=== PATIENT | female | born 1950 | race Caucasian/White ===

== ENCOUNTER 2022-07-14 14:13 | Outpatient (CLI) | payer MEDICARE, BC, SELFPAY ==
--- NOTE | 2022-07-14 14:30 | MR_ITS ---
[address] [address] Phone:?[phone] Fax:?[phone] Referring Physician Information: Amado Tenorio M.D. [address] [facility] [address] Phone:?[phone] Fax:?[phone] Patient:Frank Casey D.O.B:?1950 Sex:?Female Phone:?[phone] [facility] MRN:?[id number] Exam Date:?07/14/2022 ? EXAM: MRI of the RIGHT SHOULDER, without contrast CLINICAL HISTORY: Chronic right shoulder pain. Evaluate for rotator cuff pathology. COMPARISONS: MRI 02/15/2019. TECHNICAL: MRI sequences of the right shoulder: Axials: PD, T2 Coronals: PD, STIR, T2 Sagittals: PD, T2 SEDATION: None CONTRAST: None FINDINGS: Bones: No fracture or suspicious bone marrow signal abnormality. Coracoacromial arch: Acromion: No os acromiale. Type II acromion. Acromiohumeral space: The bony distance is unremarkable. Coracohumeral space: The bony distance is unremarkable. Acromioclavicular joint: Mild degenerative changes. Coracoclavicular ligament: The coracoclavicular ligament is intact. Rotator cuff muscles/tendons: Supraspinatus: Mild tendinopathy, similar compared to previous MRI 02/15/2019. No muscular atrophy. Infraspinatus: Moderate tendinopathy, similar compared to previous MRI 02/15/2019. No muscular atrophy. Teres minor: The teres minor tendon and muscle are intact. Subscapularis: Approximately 2.5 cm in craniocaudad dimension by 3.0 cm in transverse dimension ill-defined high-grade partial-thickness tear of the superior and mid portions of the subscapularis tendon evidenced by marked attenuation, similar compared to previous MRI 02/15/2019. Moderate atrophy of the superior and mid portions of the subscapularis muscle, similar compared to previous MRI 02/15/2019. Labrum: Fraying/ill-defined tearing of the entire labrum, not readily apparent on previous MRI 02/15/2019. Proximal biceps tendon, long head and short heads: There is intra-articular medial dislocation of the long head of the biceps tendon from the bicipital groove, also present on previous MRI 02/15/2019. The short head is intact. Glenohumeral joint: Physiologic amount of joint fluid. Extensive near full-thickness and full-thickness chondral loss over most of the glenoid greatest posterosuperiorly with subjacent degenerative subchondral cystic changes, substantially progressed compared to previous MRI 02/15/2019. Extensive near full-thickness and full-thickness chondral loss over most of the humeral head greatest superomedially, substantially progressed compared to previous MRI 02/15/2019. There is mild to moderate inferomedial humeral head osteophytosis. There is mild edema-like signal within and thickening of the glenohumeral joint capsule/inferior glenohumeral ligament best seen on coronal series 4 images 15 through 18. Bursae: Subacromial/subdeltoid: Slight bursitis. Subcoracoid: No convincing subcoracoid bursal thickening/bursitis. IMPRESSION: 1. Intra-articular medial dislocation of the long head of the biceps tendon from the bicipital groove, also present on previous MRI 02/15/2019. 2. Approximately 2.5 x 3.0 cm ill-defined high-grade partial-thickness tear of the superior and mid portions of the subscapularis tendon evidence by marked tendon attenuation, similar compared to previous MRI 02/15/2019. Moderate atrophy of the superior and mid portions of the subscapularis muscle, similar compared to previous MRI 02/15/2019. 3. Substantial glenohumeral joint osteoarthritic changes, substantially progressed compared to previous MRI 02/15/2019, include extensive near full- thickness and full-thickness chondral loss over most of the glenoid greatest posterosuperiorly, associated subjacent subchondral cystic changes posterosuperiorly, extensive near full-thickness and full-thickness chondral loss over most of the humeral head greatest superomedially, fraying/ill-defined tearing of the entire labrum, and mild to moderate inferomedial humeral head osteophytosis. 4. Moderate infraspinatus tendinopathy, similar compared to previous MRI 02/15/2019. No atrophy of the infraspinatus muscle. 5. Mild supraspinatus tendinopathy, similar compared to previous MRI 02/15/2019. No atrophy of the supraspinatus muscle. 6. Evidence of adhesive capsulitis is equivocal in this case, and adhesive capsulitis is more of a clinical diagnosis. Correlate with active and passive range of motion. 7. Slight subacromial/subdeltoid bursitis. RCB Electronically signed on 07/15/2022 6:21:00 AM by Justus Rod M.D.
== END 2022-07-14 14:14 | disposition home or self-care (01) ==
LOC: MRI 14:14
PROVIDERS: PCP Internal Medicine; Visit Provider Orthopaedic Surgery
DX: M25.511 Pain in right shoulder (principal); S43.004A Unspecified dislocation of right shoulder joint, initial encounter; M19.011 Primary osteoarthritis, right shoulder; M75.51 Bursitis of right shoulder
CPT/HCPCS: 73221

== ENCOUNTER 2022-08-05 08:00 | Outpatient (RCR) | payer MEDICARE, BC, SELFPAY ==
--- NOTE | 2022-07-15 13:07 | PT.OPEX ---
PT [facility] Out[facility] Eval PT [facility] Outpatient Eval Start: 07/15/22 12:07 Freq: Status: Active Protocol: Document 07/15/22 12:07 MILIND (Rec: 07/15/22 13:04 NMK [id number]) E-signed By Pedro Stewart DPT Physical Therapy Outpatient Evaluation Insurance Information Insurance Name Blue Cross/Blue Shield Medical Diagnosis Cervicalgia; Low back pain Treating Diagnosis Neck pain Referring Amado Galindo MD Subjective Subjective 71 y.o. female pt presents with primary c/o neck pain that started about five months ago after a fall. She reports she has also had back pain but states this is feeling much better. She reports the pain is present when she is trying to turn her head or look down, and her neck just feels very stiff and achy. She is hoping to get her neck pain under control prior to have a knee replacement surgery on 09/02/2022. She does report that ice is helping with the pain. At times, she does report her arm starts tingling when she driving as well, but otherwise denies frequent tingling or numbness. Current Work Status Retired Precautions Therapy Limitations/Systems Review Not Limited Objective Other/Pertinent Objective ROM Cervical extension: 40 degrees Cervical flexion: 30 degrees Cervical rotation L: 68 degrees R: 55 degrees Cervical side flexion L: 31 degrees R: 38 degrees Strength: 5/5 manual muscle tests in UE. Special tests Spurling's: (-) bilaterally Palpation: TTP present over R suboccipital muscle area and UT. Assessment Assessment/Impression Findings are consistent with a diagnosis of chronic, nonspecific mechanical neck pain. Impairments related to current health condition include neck pain and decreased neck ROM. These impairments contribute to decreased ability to complete tasks such as driving and reading to the inability to turn her neck without pain. Examination of body systems including structures, functions, activity limitations and participation restrictions have been addressed. Skilled PT is recommended in order to improve the patient's mobility and restore their baseline level of function. Within session patient tolerating gentle neck mobility exercises demonstrating good improvements in cervical ROM afterwards. Primary Functional Limitations Turning neck, looking down Plan of Care Rehabilitation Potential Good Physical Therapy Goals Prior to 10/14/2022... 1. Pt will demonstrate cervical spine range of motion within functional limits in order to have ability to look over their shoulder while driving 2. Pt will read for 30 minutes and report no neck pain 3. Pt will be independent in HEP in order to show ability to self manage condition after discharge Coordination/Communication With Referral Source Treatment Plan/Direct Interventions Joint Mobilization,Manual Therapy,Neuromuscular Re-ed, Self-Care/Home Management, Therapeutic Exercises Frequency/Duration 1-2 per week for 8-12 weeks Patient Will Be Discharged From Therapy Completion of LTG(s),Skills Plateau,Independent w/HEP, Independently Progressing Evaluation Billing Untimed Code Treatment Minutes 20 Complexity Moderate Certification Information Physician Comment/Change Comment or Changes Physician NPI Number #
== END 2023-05-11 23:59 | disposition home or self-care (01) ==
PROVIDERS: PCP Internal Medicine; Visit Provider Family Medicine
DX: M54.2 Cervicalgia (principal); Z51.89 Encounter for other specified aftercare
CPT/HCPCS: 97110; 97140; 97162

== ENCOUNTER 2022-08-16 14:34 | Outpatient (CLI) | payer MEDICARE, BC, SELFPAY ==
[2022-08-16 16:18] LABS: Albumin* 4.7 g/dL (3.3-5.0); Chloride* 103 mmol/L (96-114)
[2022-08-16 16:19] LABS: Potassium* 4.3 mmol/L (3.6-5.1); Sodium* 139 mmol/L (135-149)
[2022-08-16 16:21] LABS: Aspartate Amino Transferase* 44 U/L (12-35); Bilirubin Total* 0.8 mg/dL (0.1-1.5); Carbon Dioxide* 29 mmol/L (20-32); Creatinine* 0.6 mg/dL (0.5-1.5); Estimated Glomerular Filt Rate 96 ml/min; Total Protein* 8.1 g/dL (6.0-8.3)
[2022-08-16 16:22] LABS: Alanine Aminotransferase* 38 U/L (4-35); Alkaline Phosphatase* 121 U/L (40-150); Blood Urea Nitrogen* 17 mg/dL (7-30); Calcium* 8.9 mg/dL (8.4-10.6); Glucose* 80 mg/dL (60-115)
== END 2022-08-16 14:35 | disposition home or self-care (01) ==
LOC: NFLDREF 14:35
PROVIDERS: PCP Internal Medicine; Visit Provider Internal Medicine
DX: Z01.818 Encounter for other preprocedural examination (principal)
CPT/HCPCS: 80053

== ENCOUNTER 2022-09-01 08:44 | Day surgery (SDC) | payer MEDICARE, BC, SELFPAY ==
[2022-09-01] VITALS (21 sets, daily range): BP systolic 118–196; BP diastolic 68–102; PULSE 65–93; RESP 16–99; TEMP 35.6–37.3; O2SAT 16–99; BMI 30.1
[2022-09-01] MEDS: LACTATED RINGERS 1000 ML 1,000 ML 100 ML IV ×2 (08:30→12:40)
[2022-09-01] MEDS: ACETAMINOPHEN 500 MG TABLET 1000 MG PO ×3 (09:19→23:16)
[2022-09-01] MEDS: CELECOXIB 200 MG CAPSULE PO ×2 (09:19→21:27)
[2022-09-01] MEDS: OXYCODONE (CR) 10 MG TAB.ER.12H PO (09:20)
[2022-09-01] MEDS: SODIUM CHLORIDE 0.9 % (FLUSH) 10 ML SYRINGE IVF (09:20)
--- NOTE | 2022-09-01 10:32 | SUR.PREOP ---
TIME?OUT:?1040 PT/RN/MDA?VERIFICATION?OF?SURGICAL?SITE Left Knee,?PROCEDURE Periferal Nerve Block,?AND?CONSENT OBTAINED?PRIOR?TO?INVASIVE?PROCEDURE.
[2022-09-01] MEDS: MIDAZOLAM HCL 1 MG/ML inj IVP (10:40)
[2022-09-01] MEDS: fentaNYL 100 MCG/2 ML inj IVP (10:40)
[2022-09-01] MEDS: SCOPOLAMINE 1 MG/3 DAY PATCH 1 PATCH TRANSDERMA (10:40)
[2022-09-01] MEDS: CEFAZOLIN 2 GM INJ IVP (10:56)
[2022-09-01] MEDS: TRANEXAMIC ACID 100 MG/ML INJ 1000 MG IV (11:00)
--- NOTE | 2022-09-01 11:16 | P.NB_ITS ---
Nerve Block Nerve Block Time Seen by Provider: 10:30 Date Seen: 09/01/22 Type of block requested by surgeon for post-operative analgesia: geniculars and adductor canal Side: left Time out performed: Yes Verification of patient name: Yes Verification of date of : Yes Site marking: site marked Name of person performing procedure: radha Continuous monitoring Was continuous monitoring of O2 sat, B/P, front desk monitor, recorded every 15 minutes?: Yes Procedure Checklist: sterile prep, needles and gloves Ultrasound guided. Images saved: Yes Medications given in 5ml increments after negative aspiration: Ropivicaine %: 0.5 mL: 30 Needle gauge: 20 Decadron (mg): 10 Precedex (mcg): 25 Patient tolerated procedure well: Yes Block Charges Block Charge (with Pro Fee): Femoral Nerve Use of Ultrasound Machine for Block: Yes- US Guidance/pain block
--- NOTE | 2022-09-01 11:23 | P.NB_ITS ---
Nerve Block Nerve Block Time Seen by Provider: 10:30 Date Seen: 09/01/22 Type of block requested by surgeon for post-operative analgesia: geniculars Side: left Time out performed: Yes Verification of patient name: Yes Verification of date of : Yes Site marking: site marked Name of person performing procedure: radha Continuous monitoring Was continuous monitoring of O2 sat, B/P, ekg monitor tech, recorded every 15 minutes?: Yes Procedure Checklist: sterile prep and needles Patient tolerated procedure well: Yes Block Charges Block Charge (with Pro Fee): Genicular Nerve Block
--- NOTE | 2022-09-01 12:09 | CRLHL7_ITS ---
For Patients: As a result of the Cures Act, medical imaging exams and procedure reports are released immediately into your electronic medical record. You may view this report before your referring provider. If you have questions, please contact your health care provider. INDICATION: Postoperative left total knee arthroplasty, postoperative total knee arthroplasty TECHNIQUE: Knee radiograph 2 views left COMPARISON: None FINDINGS: Bone: No acute fractures or aggressive bone lesions are identified. Joint: The patient is status post a total knee arthroplasty with patellar resurfacing. No significant knee effusion is seen. Soft tissue: Anterior subcutaneous gas and joint gas are present from recent surgery. No radiopaque foreign bodies are seen. IMPRESSION: 1. There is an unremarkable postoperative appearance of the knee arthroplasty. Dictated by: Nirmal Yo MD @ 09/01/2022 14:04:42 (Electronically Signed)
--- NOTE | 2022-09-01 12:11 | P.ORPRC_ITS ---
Procedure Note Date of procedure: 09/01/22 Procedure: SURGEON: Amado Tenorio MD HOG ROOM SUPERVISOR: Birdie Mohr PA-C PREOPERATIVE DIAGNOSIS: Left knee osteoarthritis POSTOPERATIVE DIAGNOSIS: Left knee osteoarthritis NAME OF OPERATION: Left total knee arthroplasty ANESTHESIA: Spinal ESTIMATED BLOOD LOSS: 0 mL COMPLICATIONS: None SPECIMENS: None DRAINS: None PREOPERATIVE ANTIBIOTICS: Ancef 2 grams IMPLANTS: 1. J&J Attune # 7 posterior stabilized femur 2. # 5 fixed-bearing tibia 3. # 7 posterior stabilized, 5 mm fixed-bearing polyethylene 4. 38 patella INDICATIONS: The patient is a 71-year-old with a longstanding history of severe, unrelenting left knee pain secondary to end-stage (grade IV) left knee osteoarthritis. Despite appropriate nonoperative management, including activity modification, anti-inflammatories, [id number]-[id number] pain medication, bracing, physical therapy, and injections they continue to have pain and disability. Operative intervention was offered. The risks, benefits and expected outcomes were discussed in detail. These included but were not limited to: Infection, bleeding, injury to blood vessel or nerve, venous thromboembolism. All questions were answered to their satisfaction. Use of an medical assistant instructor was necessary throughout the case for patient positioning and safety, soft tissue retraction, and closure. PROCEDURE: Spinal anesthesia was administered. The patient was placed supine on the operating table. The medical assistant instructor made sure the patient was positioned appropriately. The lower extremity was prepped and draped in the usual sterile fashion. The limb was exsanguinated with the Phillip bandage. The pneumatic tourniquet was inflated to 300 mmHg. A standard anterior incision was made with the knee in flexion. Subcutaneous dissection was sharply taken through fascial layer #1. Full-thickness medial and lateral flaps were elevated. The medical assistant instructor retracted the soft tissues and protected them throughout the case. A standard medial parapatellar approach was made. The patella was everted. The infrapatellar fat pad was preserved. The menisci and cruciate ligaments were sharply d?brided. Marginal osteophytes were d?brided with the rongeur. The drill was used to penetrate the femoral canal. The canal was aspirated and irrigated with pulse lavage. The intramedullary femoral guide was placed for a 5-degree valgus cut, removing 10 mm off the distal femur. The saw was used to make the cut. Whitesides line and the trans epicondylar axis were marked. The femoral sizing guide was pinned onto the distal femur. Three degrees of external rotation nicely parallels the transepicondylar axis. Pins were placed for posterior referencing. The four-in-one cutting guide was pinned onto the distal femur. The anterior, posterior, and chamfer cuts were made. The medical assistant instructor protected the collateral ligaments. The box cutting guide was pinned. The box cuts were made. The boxed trial was placed and was an excellent fit. Drill holes for the lugs were made. Attention was then turned to the proximal tibia. The extramedullary tibial guide was placed for a neutral varus/valgus cut with 5 degrees of posterior slope, removing 2 mm based off the medial tibial surface. The medical assistant instructor protected the collateral ligaments and the neurovascular bundle. The saw was used to make the cut. Trial components were placed. The knee was tight in both flexion and extension. Therefore, we replaced tibial cutting guide, advancing it 2 more mm distally. The saw was used to make the cut. Trial components were replaced and now the knee was nicely balanced in both flexion and extension. The trial components were removed. The tray was placed in appropriate rotation, parallel to our tibial cutting pins. It was pinned by the medical assistant instructor and the drill and the punch were used. The tray was removed. The punch was used again. We placed a bone plug in the femoral canal. Attention was then turned to the patella. Ute patellar thickness was 19.5 mm. The lobster claw resection guide was used with the 7.5 mm ramona and comma guide used as an extra ramona. The saw was used to make the cut. Drill holes were made by the medical assistant instructor. The trial was placed and was an excellent fit. Cancellous surfaces were irrigated with pulse lavage and thoroughly dried by the medical assistant instructor. We cemented the tibial component, then the femoral component. We impacted the 5 mm polyethylene onto the tibial tray. The knee was brought into full extension. We then cemented the patellar component. Excessive cement was removed. The cement was allowed to harden. The knee was taken through a range of motion and was found to be nicely balanced in both flexion and extension. The patella tracks centrally. The medical assistant instructor did a three minute dilute Betadine solution soak. The medical assistant instructor irrigated the wound with 3 liters of normal saline via pulse lavage. The medical assistant instructor reapproximated the extensor mechanism with #1 Vicryl in an interrupted [id number] fashion. The medical assistant instructor then ran the extensor mechanism with a #1 PDO Stratafix. The medical assistant instructor closed the subcutaneous tissues with a 3-0 Stratafix and the skin with a running 3-0 Stratafix in a subcuticular fashion. Glue was used to seal the skin. The medical assistant instructor placed a dry dressing, DELVIS stocking, and Polar Care. Sponge and needle counts were correct x2. The patient tolerated the procedure well. There were no apparent complications. They were carefully transferred to the hospital bed and taken to the postanesthesia care unit in satisfactory condition. PLAN: The patient will be mobilized with physical therapy. Aspirin will be used for DVT prophylaxis. They will be discharged to home once medically appropriate.
--- NOTE | 2022-09-01 13:05 | W.ANESCHARGE ---
Anesthesia Charges Start Date/Time Anesthesia Start Date: 09/01/22 Anesthesia Start Time: 10:46 Stop Date/Time Anesthesia Stop Date: 09/01/22 Anesthesia Stop Time: 13:05 Summary Emergency: No Extremes of Age: Over 70-CPT [id number]
--- NOTE | 2022-09-01 14:27 | PC.SOCIAL ---
Discharge planning- Phone call to [facility] to confirm that they will be admitting pt to [facility] tomorrow (09/02/22). Spoke to Brianna in admissions. Brianna confirmed that they will take pt tomorrow. Faxed over initial referral paperwork to [facility]. Met with pt in room to discuss discharge planning. Pt states that she does have a ride set for tomorrow between 10:00 and 11:00 am from a friend, Luly Pierre. Provided update to charge nurse.
[2022-09-01] MEDS: OXYCODONE 5 MG TABLET PO ×4 (14:51→23:13)
[2022-09-01] MEDS: CEFAZOLIN 2 GM in 0.9 % SODIUM CHLORIDE Mini-bag 100 ML IVPB (16:37)
[2022-09-01] MEDS: GABAPENTIN 100 MG CAPSULE 200 MG PO ×2 (16:40→21:27)
--- NOTE | 2022-09-01 17:06 | P.IMCN_ITS ---
Date of Consult Patient: [facility] Patient Consult date: 09/01/22 Requesting Physician: Orthopedics Primary Care Provider: Rox Maki MD Consult Narrative Reason for consult: Postoperative cares including elevated blood pressure and daily alcohol use Narrative: Pauline Casey is a 71 year old woman with severe, symptomatic left knee arthritis presents today for an elective left total knee arthroplasty, which is undertaken successfully without any complications. Blood pressure is modestly elevated postoperatively with systolic values of 180- 200 mmHg. In clinic setting preoperative blood pressures were also elevated, with systolic values of 150-180. She denies chest heaviness, pressure, tightness, or pain. Denies syncope or near-syncope. Denies nausea or vomiting. Denies cough, dyspnea at rest, paroxysmal nocturnal dyspnea, orthopnea, or dyspnea with exertion. No lower extremity edema. Review of Systems Status of ROS: Reports: 10 or more systems reviewed and unremarkable except as noted in History and below Narrative: No recent fever, rigors, diaphoresis. No recent illness, trauma, travel. No blood loss of any sort aside from the surgical procedure that she had today. No bowel or bladder concerns. Denies dysuria, urgency, frequency, or hematuria. Denies any focal motor neurologic deficits. Denies myalgias or arthralgias. Denies weight gain or weight loss. Again denies any alcohol withdrawal symptoms. [facility] Medical History Arthritis of right acromioclavicular joint Daily consumption of alcohol Elevated blood pressure reading without diagnosis of hypertension Irritable bowel syndrome (09/24/09) Lymphocytic colitis Obesity with body mass index greater than 30 Osteoarthritis of carpometacarpal joint of right thumb Osteopenia (2021) Overactive bladder Primary osteoarthritis of left knee Strain of right biceps Surgical History History of bilateral cataract extraction History of blepharoplasty (2021) History of bunionectomy (09/24/09) History of cholecystectomy (~1968) History of foot surgery (07/07/12) History of total hip replacement (2004) History of total knee replacement (03/15/16) Status post right foot surgery (07/04/14) Family History Sister Diabetes Osteoarthritis Mother Lung cancer Father Leukemia Social History Smoking Status: Former smoker What tobacco products do you use: cigarettes Smoking quit date/years: >15 years ago Do you use any of these nicotine containing products: None Second hand tobacco smoke exposure: No How often do you have a drink containing alcohol: 4 or more times a week Alcohol type: wine How many standard drinks containing alcohol do you have on a typical day: 1 or 2 How often do you have six or more drinks on one occasion: Never AUDIT-C Alcohol total score: 4 Non-prescribed substance use: denies use Caffeine: Yes (coffee, 2-3 cups/day) Meds Home Medications and Allergies Home Medications Medication Instructions Recorded Confirmed Type cholecalciferol (vitamin D3) 50 2,000 unit PO DAILY 07/06/22 09/01/22 History mcg (2,000 unit) capsule cranberry 500 mg capsule 500 mg PO DAILY 07/06/22 09/01/22 History cyanocobalamin (vitamin B-12) 3,000 mcg PO DAILY 07/06/22 09/01/22 History 3,000 mcg capsule multivitamin 1 tab PO DAILY 07/06/22 09/01/22 History omega 8-[id number]-fish oil 100 1 cap PO DAILY 07/06/22 08/31/22 History mg-160 mg-1,000 mg capsule (Fish Oil) Allergies Allergy/AdvReac Type Severity Reaction Status Date / Time morphine Allergy Mild itching Verified 09/01/22 09:05 nickel Allergy Mild rash when Verified 09/01/22 09:05 she wears cheap jewlery codeine AdvReac Mild GI upset Verified 09/01/22 09:05 hydrocodone AdvReac Mild GI upset Verified 09/01/22 09:05 Exam Narrative: Exam Narrative: No acute distress, appears comfortable. Still not able to move the affected left lower extremity from the anesthetic block. Alert, oriented to self, place, time, situation. Articulate, cooperative, friendly. Mood and affect are congruent. Vision and hearing are grossly normal. Midline nasal septum. Normal nasal mucosa. Dentition in fair repair. Cranial nerves 3-12 are grossly normal. Neck is supple. Midline trachea, normal thyroid. No JVD or hepatojugular reflux. No lymphadenopathy. Lungs are clear to auscultation without wheezing, rhonchi, or rales. Chest wall excursions are full. No CVA tenderness. Heart tones with regular rhythm, normal S1-S2, without murmur, gallop, or rub. PMI is not laterally displaced. Abdomen with active bowel sounds, soft, nontender, without rebound or guarding. Extremities without edema. Capillary refill less than 3 seconds on digits of upper and lower extremities. Still not able to lift the affected left leg off the bed when I examine her. Otherwise no focal motor neurologic deficits. Const: Vital Signs, click to edit/add: Vital Signs - 24 hr 09/01/22 09:08 09/01/22 10:40 09/01/22 13:00 Temperature 97.7 F 96.6 F L Pulse Rate 81 77 69 Pulse Rate [Left P ulse Oximeter] Respiratory Rate 16 16 16 Blood Pressure 169/79 H 178/77 H 118/68 Blood Pressure [Le ft Arm] Blood Pressure [Ri ght Arm] Pulse Oximetry 96 96 95 Oxygen Delivery Me thod Room Air Nasal Cannula Room Air Oxygen Flow Rate 2 09/01/22 13:05 09/01/22 13:15 09/01/22 13:10 Temperature 96.6 F L 96.6 F L Pulse Rate 69 67 65 Pulse Rate [Left P ulse Oximeter] Respiratory Rate 16 16 16 Blood Pressure 127/70 136/72 127/76 Blood Pressure [Le ft Arm] Blood Pressure [Ri ght Arm] Pulse Oximetry 95 95 93 Oxygen Delivery Me thod Room Air Room Air Room Air Oxygen Flow Rate 2 2 09/01/22 13:22 09/01/22 13:26 09/01/22 13:31 Temperature 96.8 F L 96.8 F L 97.2 F L Pulse Rate 67 65 68 Pulse Rate [Left P ulse Oximeter] Respiratory Rate 16 16 16 Blood Pressure 133/75 146/79 H 147/79 H Blood Pressure [Le ft Arm] Blood Pressure [Ri ght Arm] Pulse Oximetry 97 96 95 Oxygen Delivery Me thod Room Air Room Air Room Air Oxygen Flow Rate 2 09/01/22 13:41 09/01/22 13:45 09/01/22 14:00 Temperature 96.3 F L 96.7 F L 96.1 F L Pulse Rate 65 Pulse Rate [Left P ulse Oximeter] 68 78 Respiratory Rate 16 16 99 H Blood Pressure Blood Pressure [Le ft Arm] 154/86 H 167/85 H Blood Pressure [Ri ght Arm] 180/81 H Pulse Oximetry 86 L 16 L Oxygen Delivery Me thod Room Air Room Air Room Air Oxygen Flow Rate 09/01/22 14:15 09/01/22 14:30 09/01/22 15:00 Temperature 96.8 F L 97.1 F L 97 F L Pulse Rate Pulse Rate [Left P ulse Oximeter] 65 71 76 Respiratory Rate 16 16 16 Blood Pressure Blood Pressure [Le ft Arm] 190/93 H 196/93 H 192/97 H Blood Pressure [Ri ght Arm] Pulse Oximetry 98 98 99 Oxygen Delivery Me thod Room Air Room Air Room Air Oxygen Flow Rate 2 2 09/01/22 15:30 09/01/22 15:00 09/01/22 16:30 Temperature 97.4 F L 97.4 F L Pulse Rate Pulse Rate [Left P ulse Oximeter] 77 68 Respiratory Rate 16 16 16 Blood Pressure Blood Pressure [Le ft Arm] 185/102 H 176/84 H Blood Pressure [Ri ght Arm] Pulse Oximetry 99 99 Oxygen Delivery Me thod Room Air Room Air Oxygen Flow Rate Documenting provider has reviewed patient's vital signs: yes Assessment and Plan Assessment and plan (1) Primary osteoarthritis of left knee: Status: Acute (2) Status post left knee replacement: Problem comment: 09/01/2022, [facility], Dr. Tenorio Status: Acute (3) Daily consumption of alcohol: Problem comment: 2-4 drinks of wine daily, denies withdrawal symptoms Status: Acute (4) Elevated blood pressure reading without diagnosis of hypertension: Status: Acute (5) Obesity with body mass index greater than 30: Status: Acute Plan 1. Reviewed impression with patient. Answered her questions. 2. Will follow patient with Orthopedic surgery while she is in the hospital. 3. I am concerned about heard daily alcohol use. While in hospital will initiate gabapentin prophylactically at 200 mg 3 times daily. Will monitor closely for possible alcohol withdrawal and initiate CIWA driven lorazepam if needed. 4. Did initiate discussion with patient about increased risk of complications due to her daily consumption of alcohol. 5. For now will monitor the blood pressure. Again it has been elevated in the outpatient setting as well. Will certainly warrant follow-up with her primary care physician in regard to the same. 6. Agree with perioperative antibiotic prophylaxis. 7. Agree with postoperative venous thromboembolism prophylaxis.
--- NOTE | 2022-09-01 18:14 | PC.NURSE ---
End of Shift: Patient pleasant and cooperative. Patient was initially hypertensive first couple hours after surgery with BP/s in low 200's, high 190's, MD notified. BP's are not WNL, lungs clear, BS WNL, IV SL. Patient has been up to the toilet x2, not completely making it to the toilet. Patient has rated pain at most 5/10, 5 mg of oxy given once, then 10mg of oxy given once, plus scheduled tylenol. Patient 1 assist, walker, gb. Patient tolerating regular diet. Left knee dressing C/D/I.
[2022-09-01] MEDS: ASPIRIN 81 MG TABLET EC PO (21:27)
[2022-09-01] MEDS: SENNOSIDES 1 TAB TABLET 2 TAB PO (21:28)
[2022-09-02] MEDS: CEFAZOLIN 2 GM in 0.9 % SODIUM CHLORIDE Mini-bag 100 ML IVPB ×2 (01:12→08:23)
[2022-09-02 03:00] VITALS: BP 165/76; PULSE 79; RESP 18; TEMP 36.3; O2SAT 97
[2022-09-02] MEDS: ACETAMINOPHEN 500 MG TABLET 1000 MG PO ×2 (05:43→12:16)
[2022-09-02] MEDS: OXYCODONE 5 MG TABLET PO ×3 (05:43→12:16)
--- NOTE | 2022-09-02 06:19 | PC.NURSE ---
Shift note -: Pt alert, uses call light for needs, up to BR w/ SBA and walker, moving well. Rating pain 4-5/10 taking scheduled Tylenol w/ PRN Oxycodone x2 and cryocuff to op site, verbalizes adequate pain relief. Drsg to L knee CDI, CMS intact. Plans to Dc to [facility] today.
[2022-09-02 07:00] VITALS: BP 124/78; PULSE 79; PULSE 85; RESP 18; TEMP 36.8; O2SAT 97
[2022-09-02 07:08] LABS: Basophils Percent Auto 0.1 % (0.0-3.0); Hematocrit 37.5 % (33.0-51.0); Hemoglobin* 12.1 gm/dL (12.0-16.0); Immature Granulocytes Pct Auto 0.4 %; Lymphocytes Percent Auto 5.9 % (20-44); Mean Corpuscular HGB Conc 32 gm/dL (32-36); Mean Corpuscular Hemoglobin 31 pg (26-34); Mean Corpuscular Volume 97 fL (80-100); Monocytes Percent Auto 9.5 % (0.0-11.0); Neutrophils Percent Auto 84.1 % (42.0-72.0); Platelet Count* 264 K/uL (140-440); RDW Coefficient of Variation % 12.7 % (11.5-15.5); Red Blood Count 3.87 m/uL (4.00-5.20); White Blood Count* 11.09 K/uL (4.50-11.00)
[2022-09-02 07:10] LABS: Slide Review Reflex No
[2022-09-02 07:25] LABS: Sodium* 136 mmol/L (135-149)
[2022-09-02 07:26] LABS: INR 0.99 (0.91-1.10); Prothrombin Time 13.7 Seconds
[2022-09-02 07:28] LABS: Blood Urea Nitrogen* 19 mg/dL (7-30); Creatinine* 0.7 mg/dL (0.5-1.5); Est. Creatinine Clearance* 53.93; Estimated Glomerular Filt Rate 92 ml/min
[2022-09-02] MEDS: SENNOSIDES 1 TAB TABLET 2 TAB PO (08:23)
[2022-09-02] MEDS: GABAPENTIN 100 MG CAPSULE 200 MG PO (08:24)
[2022-09-02] MEDS: CELECOXIB 200 MG CAPSULE PO (08:24)
[2022-09-02] MEDS: MULTIVITAMIN/MINERALS 1 TABLET 1 TAB PO (08:25)
[2022-09-02] MEDS: ASPIRIN 81 MG TABLET EC PO (08:25)
--- NOTE | 2022-09-02 08:28 | PM.ORPN ---
Subjective Subjective Time Seen by Provider: 07:50 Date Seen: 09/02/22 Principal diagnosis: S/P day 1 left KTA Interval history: Pauline is doing well this morning and is resting comfortably in her recliner. Ranks her left knee pain as 3 or 4/10. Denies chest pain, SOB, fever, chills. Pain is well managed with current scheduled and PRN oral pain medications and ice. No BM since surgery, also denies flatulence. Patient will be discharged to [facility] later today. No acute events over night. Ortho Exam Narrative Exam Narrative: Incision/Dressing: Dressing appears clean and dry. No drainage present. Mepilex intact. Left knee appears moderately swollen but supple with no obvious erythema, fluctuance or excessive warmth. No ecchymosis or erythematous streaking. Warmth around the wound is appropriate. Ice is being utilized as needed. CMS: Intact distally with 2+ Dorsalis pedis and Posterior Tibial pulses. 5/5 motor strength dorsal and plantar flexion. Confirmed sensation distally. Calf: Bilateral calves are supple, with no swelling, pain, tenderness, erythema, discoloration or coolness to the touch. Constitutional: Patient is alert and oriented x3. Patient is in no acute distress and converses without labored breathing. Patient is able to make decisions and demonstrates good insight. Patient is pleasant and cooperative. Affect is full range and appropriate for the circumstances. Const Vital Signs, click to edit/add: Vital Signs - 24 hr 09/01/22 09:08 09/01/22 10:40 09/01/22 13:00 Temperature 97.7 F 96.6 F L Pulse Rate 81 77 69 Pulse Rate [Left Pulse Oximeter] Respiratory Rate 16 16 16 Blood Pressure 169/79 H 178/77 H 118/68 Blood Pressure [Left Arm] Blood Pressure [Right Arm] Pulse Oximetry 96 96 95 Oxygen Delivery Method Room Air Nasal Cannula Room Air Oxygen Flow Rate 2 09/01/22 13:05 09/01/22 13:15 09/01/22 13:10 Temperature 96.6 F L 96.6 F L Pulse Rate 69 67 65 Pulse Rate [Left Pulse Oximeter] Respiratory Rate 16 16 16 Blood Pressure 127/70 136/72 127/76 Blood Pressure [Left Arm] Blood Pressure [Right Arm] Pulse Oximetry 95 95 93 Oxygen Delivery Method Room Air Room Air Room Air Oxygen Flow Rate 2 2 09/01/22 13:22 09/01/22 13:26 09/01/22 13:31 Temperature 96.8 F L 96.8 F L 97.2 F L Pulse Rate 67 65 68 Pulse Rate [Left Pulse Oximeter] Respiratory Rate 16 16 16 Blood Pressure 133/75 146/79 H 147/79 H Blood Pressure [Left Arm] Blood Pressure [Right Arm] Pulse Oximetry 97 96 95 Oxygen Delivery Method Room Air Room Air Room Air Oxygen Flow Rate 2 09/01/22 13:41 09/01/22 13:45 09/01/22 14:00 Temperature 96.3 F L 96.7 F L 96.1 F L Pulse Rate 65 Pulse Rate [Left Pulse Oximeter] 68 78 Respiratory Rate 16 16 99 H Blood Pressure Blood Pressure [Left Arm] 154/86 H 167/85 H Blood Pressure [Right Arm] 180/81 H Pulse Oximetry 86 L 16 L Oxygen Delivery Method Room Air Room Air Room Air Oxygen Flow Rate 09/01/22 14:15 09/01/22 14:30 09/01/22 15:00 Temperature 96.8 F L 97.1 F L 97 F L Pulse Rate Pulse Rate [Left Pulse Oximeter] 65 71 76 Respiratory Rate 16 16 16 Blood Pressure Blood Pressure [Left Arm] 190/93 H 196/93 H 192/97 H Blood Pressure [Right Arm] Pulse Oximetry 98 98 99 Oxygen Delivery Method Room Air Room Air Room Air Oxygen Flow Rate 2 2 09/01/22 15:30 09/01/22 15:00 09/01/22 16:30 Temperature 97.4 F L 97.4 F L Pulse Rate Pulse Rate [Left Pulse Oximeter] 77 68 Respiratory Rate 16 16 16 Blood Pressure Blood Pressure [Left Arm] 185/102 H 176/84 H Blood Pressure [Right Arm] Pulse Oximetry 99 99 Oxygen Delivery Method Room Air Room Air Oxygen Flow Rate 09/01/22 17:30 09/01/22 18:37 09/01/22 19:30 Temperature 98.2 F 99.1 F 97.1 F L Pulse Rate Pulse Rate [Left Pulse Oximeter] 88 73 93 Respiratory Rate 16 16 18 Blood Pressure Blood Pressure [Left Arm] 134/92 H 162/96 H 149/95 H Blood Pressure [Right Arm] Pulse Oximetry 95 93 97 Oxygen Delivery Method Room Air Room Air Room Air Oxygen Flow Rate 09/01/22 23:00 09/01/22 23:00 09/02/22 03:00 Temperature 97.9 F 97.4 F L Pulse Rate Pulse Rate [Left Pulse Oximeter] 80 79 Respiratory Rate 18 18 18 Blood Pressure Blood Pressure [Left Arm] Blood Pressure [Right Arm] 165/84 H 165/76 H Pulse Oximetry 97 97 Oxygen Delivery Method Room Air Room Air Oxygen Flow Rate Documenting provider has reviewed patient's vital signs: yes Assessment and Plan Assessment and plan (1) Primary osteoarthritis of left knee: Status: Acute (2) Status post left knee replacement: Problem details: DOS: 09/01/2022, Dr. Tenorio Status: Acute Assessment and Plan: - Complete 23 hour perioperative antibiotics. - PT/OT consults for education and assistance. - Weight bear as tolerated. - DVT prophylaxis includes: aspirin 81 mg BID x 1 month. Also bilateral knee high Markos stockings (x 1 month), frequent ambulation and ankle pumps when sedentary. - Anticipate patient will be discharged to [facility] later this afternoon if the patient remains medically stable, pain is controlled and is safe with ambulation. - Return to clinic in 1 week for a wound check. Mepilex dressing will be removed at this appointment. Remove sooner if dressing becomes saturated. - Return to clinic in [address] Tenorio. - Prescribed analgesics as needed. Patient is content with current narcotic medications. Minimize narcotic pain medication use; wean off and discontinue as soon as possible. - Phone Orthopedics with any questions or concerns. (3) Daily consumption of alcohol: Status: Acute (4) Elevated blood pressure reading without diagnosis of hypertension: Status: Acute (5) Obesity with body mass index greater than 30: Status: Acute
[2022-09-02 09:47] VITALS: BP 147/79; PULSE 65; RESP 18; TEMP 36.3
--- NOTE | 2022-09-02 10:41 | PC.SOCIAL ---
Completed preadmission screening for pt to admit to [facility] on 09/02/2022. Confirmation# [id number]. Faxed preadmission screening to [facility].
== END 2022-09-02 13:46 | disposition home or self-care (01) ==
LOC: OR 08:47 → MEDSURG 08:51
PROVIDERS: PCP Internal Medicine; Visit Provider Orthopaedic Surgery
PROC: (CPT 27447; principal; 2022-09-01 11:15)
DX: M17.12 Unilateral primary osteoarthritis, left knee (principal); M25.562 Pain in left knee; R03.0 Elevated blood-pressure reading, without diagnosis of hypertension; E66.9 Obesity, unspecified; Z68.30 Body mass index [BMI] 30.0-30.9, adult; F10.90 Alcohol use, unspecified, uncomplicated
CPT/HCPCS: 27447; 01402; 36415; 64447; 64454; 73560; 76942; 82565; 84132; 84295; 84520; 85025; 85610; 97110; 97116; 97161; 97165; 97535; 99100; A9153; A9270; C1776; J0690; J1100; J2250; J2795; J3010; J7120

== ENCOUNTER 2022-09-08 13:41 | Outpatient (CLI) | payer MEDICARE, BC, OTHER, SELFPAY ==
--- NOTE | 2022-09-08 14:00 | CRLHL7_ITS ---
For Patients: As a result of the Century Cures Act, medical imaging exams and procedure reports are released immediately into your electronic medical record. You may view this report before your referring provider. If you have questions, please contact your health care provider. INDICATION: Left calf pain, status post TKR about 1 week ago.. TECHNIQUE: Ultrasound venous duplex lower left extremity. Compression venous exam was performed using hargrove-scale, color Doppler, and spectral Doppler analysis. COMPARISON: None. FINDINGS: Deep veins: Sonographic imaging demonstrates the left common femoral, deep femoral, superficial femoral, popliteal, posterior tibial and the contralateral right common femoral veins to be fully compressible with normal color Doppler blood flow. Superficial veins: Greater saphenous vein is fully compressible. No popliteal cyst. Small fluid collection posterior to the knee measuring approximately 3.9 x 0.8 x 1.4 centimeters, likely postsurgical. IMPRESSION: No DVT in the left lower extremity. Dictated by Madison Bond MD @ 09/08/2022 8:23:12 PM (Electronically Signed)
== END 2022-09-08 13:42 | disposition home or self-care (01) ==
LOC: US 13:42
PROVIDERS: PCP Internal Medicine; Visit Provider Physician Assistant Surgical
DX: M79.605 Pain in left leg (principal); Z96.652 Presence of left artificial knee joint
CPT/HCPCS: 93971

== ENCOUNTER 2022-10-21 16:15 | Outpatient (RCR) | payer MEDICARE, BC, SELFPAY ==
--- NOTE | 2022-08-22 13:40 | PT.OPEX ---
PT [place] Outpatient Eval PT [facility] Outpatient Eval Start: 08/22/22 09:07 Freq: Status: Active Protocol: Document 08/22/22 10:11 MANUEL (Rec: 08/22/22 13:35 MANUEL [id number]) E-signed By Freddie Bowen PT Physical Therapy Outpatient Evaluation Insurance Information Insurance Name Medicare B,Blue Cross/Blue Shield Medical Diagnosis Left knee OA Treating Diagnosis Left quad weakness Decreased left knee ROM Referring MD Tenorio Subjective Subjective Pt. states that she has had chronic left knee pain due to progressive OA. She was responding to injections before but nothing has helped recently. She will be having a TKA on 09/01/22. She had a right TKA 7 years ago which she has done well with. She lives alone in an apartment on one level with the only steps getting down to the laundry room which has a railing. She is planning on having a short stay in a SNF for rehab following surgery if she is able to get into one. PMH includes OA, and right TKA. She has been walking without an assistive device except for longer distances when she uses a cane. 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 demonstrates; mild/mod limp on left without assistive device; 4/5 left quad strength; mild swelling of left knee; 5-25 degrees of left knee AROM; and good right knee and bilat. UE mobility and strength. She will benefit from performing pre-op exercises prior to surgery, improving effectiveness of rehab following surgery. She will benefit from skilled therapy following her TKA on 09/01/22. Primary Functional Limitations walking, squatting, steps Plan of Care Rehabilitation Potential Excellent Physical Therapy Goals 1. Pt. will be indep. with HEP for self maintenance in 10 weeks. 2. Pt. will be able to walk with a min limp without assistive device in 10 weeks. 3. Pt. will demonstrate improved quad and core strength in 10 weeks to WNL. 4. Pt. will demonstrate functional knee AROM to allow regular ADL's in 10 weeks. Coordination/Communication With Referral Source Treatment Plan/Direct Interventions Gait Training,Joint Mobilization,Manual Therapy, Neuromuscular Re-ed,Self-Care/ Home Management,Therapeutic Activities,Therapeutic Exercises Frequency/Duration Re-eval in therapy after surgery and continue 2 times a week for 8 weeks. Patient Will Be Discharged From Therapy Independent w/HEP, Independently Progressing Evaluation Billing Complexity Low Certification Information Initial Certification Date 08/22/22 Ending Certification Date 11/14/22 Provider Signature Shows Agreement With POC & Medical Necessity Physician Signature & Date Requested Please Sign/Date Here Physician Comment/Change : Physician NPI Number #
== END 2022-11-25 14:31 | disposition home or self-care (01) ==
PROVIDERS: PCP Internal Medicine; Visit Provider Orthopaedic Surgery
DX: M17.12 Unilateral primary osteoarthritis, left knee (principal); Z51.89 Encounter for other specified aftercare
CPT/HCPCS: 97110; 97140; 97161; 97164

== ENCOUNTER 2023-01-27 14:18 | Outpatient (CLI) | payer MEDICARE, BC, SELFPAY ==
--- NOTE | 2023-01-27 14:40 | CRLHL7_ITS ---
For Patients: As a result of the Cures Act, medical imaging exams and procedure reports are released immediately into your electronic medical record. You may view this report before your referring provider. If you have questions, please contact your health care provider. BILATERAL SCREENING MAMMOGRAM WITH COMPUTER-AIDED DETECTION AND TOMOSYNTHESIS TECHNIQUE: CC and MLO views were obtained. These mammographic images have been obtained using full-field digital technique. These mammographic images were interpreted with the benefit of computer-aided detection. Breast Tomosynthesis was used in this interpretation. COMPARISON FILM: 01/13/22, 03/15/18, 08/02/12. FINDINGS: There are scattered areas of fibroglandular density IMPRESSION: There is no radiographic evidence for malignancy. ASSESSMENT: BI-RADS Category 1: Negative RECOMMENDATION: Routine screening mammogram in 1 year. A lay language report of this examination will be provided to the patient. Bryce Page M.D. Diagnostic Radiologist [email or web address] Transcribed: 2:30 p.[email or web address] chen/Dictated by: Bryce Page MD @ 01/30/2023 1:12:00 PM (Electronically Signed)
== END 2023-01-27 14:19 | disposition home or self-care (01) ==
LOC: MAMMO 14:20
PROVIDERS: PCP Internal Medicine; Visit Provider Internal Medicine
DX: Z12.31 Encounter for screening mammogram for malignant neoplasm of breast (principal)
CPT/HCPCS: 77063; 77067

== ENCOUNTER 2023-10-30 12:48 | Outpatient (CLI) | payer MEDICARE, SELFPAY ==
--- OUTSIDE RECORDS SUMMARY | 2023-10-30 12:51 | XMS_ITS | Encounter Summary ---
Author Name Unknown Organization [facility] Address [address] [facility] [place] [address] Care Team Providers Care Autistic Teacher Name Role Phone Unavailable Primary Care Provider Unavailabl e Reason for Visit * Procedure/Equipment (Routine) - Incomplete Specialty Diagnoses / Procedures Referred By Aditi t Referred To Contact Procedures Foreign Image(S) XR Wrist Rt Humphrey Devi MD [address] [facility] [place] [id number] Referral ID Status Reason Start Date Expiration Date V isits Requested Visits Authorized [id number] Incomplete 10/20/2023 01/18/2025 1 1 Encounter Details Date Type Department Care Team Description 03/23/2023 Ancillary Procedure [facility] [address] [place] [id number] Humphrey Devi MD [address] [facility] [address] [place] [id number] Social History Tobacco Use Types Packs/Day Years Used Date Smoking Tobacco: Never Assessed Sex and Gender Information Value Date Recorded Sex Assigned at Not on file Gender Identity Not on file Sexual Orientation Not on file documented as of this encounter Plan of Treatment Not on file documented as of this encounter Procedures Procedure Name Priority Date/Time Associated Diagnosis Comments FOREIGN IMAGE(S) XR WRIST RT Routine 03/23/2023 12:00 AM CDT documented in this encounter Results * Foreign Image(S) XR Wrist Rt (03/23/2023 12:00 AM CDT) Narrative POCT - 10/20/2023 11:38 AM COMB CAPPER These outside images have been uploaded into PACS. If the results were provided, they will be located in the patient's chart under the Media or Imaging tab. Humphrey Devi MD RAD NON-REPORTABLES POCT documented in this encounter Visit Diagnoses Not on filedocumented in this encounter
--- OUTSIDE RECORDS SUMMARY | 2023-10-30 12:51 | XMS_ITS | Clinical Summary ---
Author Name Unknown Organization [facility] Address [place], [place] [address] Care Team Providers Care Pulverizer Mill Operator Name Role Phone Rox Maki MD Primary Care Provider [phone] Allergies Active Allergy Reactions Criticality Noted Date Comments Codeine Nausea Only 05/15/2007 Morphine Itching 05/15/2007 Nickel Rash Low 06/16/2020 Medications Medication Sig Dispensed Refills Start Date End Date Status MULTIVITAMIN TAB take 1 tablet by oral route once daily with food 0 08/21/2007 Active CRANBERRY 1,000 MG CAP 2 tablets daily 0 08/21/2007 Active CALCIUM ACETATE-MAGNESIUM CARB 300 MG-300 MG TAB Once daily 0 08/21/2007 Active VITAMIN D 400 UNIT TAB take 1 tablet by oral route once daily 0 09/24/2008 Active naproxen (NAPROSYN) 250 mg tablet Take 250 mg by mouth. 2 03/09/2018 Active cyanocobalamin (VITAMIN B-12) 100 mcg tablet Daily 0 Active mirabegron EXTENDED-release (MYRBETRIQ) 50 mg tabletIndications:Ove ractive bladder Take 1 tablet by mouth once daily. 30 tablet 11 07/15/2020 Active Active Problems Problem Noted Date Diagnosed Date Other hammer toe (acquired) 04/24/2008 Bunion 10/26/2007 Degeneration of cervical intervertebral disc 01/2008 Brachial neuritis or radiculitis NOS 10/26/2007 Immunizations Name Administration Dates Next Due Influenza, IIV3 (Age >=3 years) 08/20/2007 Td (Age >=7 Years) 02/27/2004 Family History Medical History Relation Name Comments Diabetes Maternal Grandmother Diabetes Sister Relation Name Status Comments Father (Age 73) leukemia Maternal Grandmother Mother (Age 56) lung ca Sister Social History Tobacco Use Types Packs/Day Years Used Date Smoking Tobacco: Former Smokeless Tobacco: Never Tobacco Cessation:Counseling Given: Yes Comments:quit age 18 Alcohol Use Standard Drinks/Week Comments Yes 8.3 (1 standard drink = 0.6 oz p ure alcohol) 6-8 glasses wine/week Sex and Gender Information Value Date Recorded Sex Assigned at Not on file Gender Identity Not on file Sexual Orientation Not on file Obstetrics History Para Term AB IAB SAB Ectopic Multiple Livin g Live Births 3 3 3 Date Outcome GA Total Labor Labor/2nd/3rd Weight Sex Delivery Anes PTL Felicita A1 A5 Name Cl in Term Term Term Last Filed Vital Signs Vital Sign Reading Time Taken Comments Blood Pressure 152/76 06/30/2021 2:41 PM CDT tow er Pulse 72 06/30/2021 2:41 PM CDT Temperature 37.2 ??C (98.9 ??F) 09/24/2008 1:46 PM CS T Respiratory Rate 16 10/14/2020 2:13 PM COLLECTION OFFICER Oxygen Saturation 95% 06/30/2021 2:41 PM CDT Inhaled Oxygen Concentration - - Weight 92.5 kg (204 lb) 05/26/2021 1:45 PM CDT Height 174.8 cm (5' 8.8) 08/21/2007 3:47 PM CDT Body Mass Index - - Plan of Treatment Health Maintenance Due Date Last Done Comments Tdap 1961 Depression screening for age 12+ 1962 BMI (ht and wt on same day) for age 18+ 1968 Hepatitis C screening for age 18-79 1968 Colonoscopy through age 75 1995 Zoster (shingles) series for age 50+ (1 of 2) 2000 Mammogram for age 45-75 06/24/2010 06/24/2009, 08/21 Lipids for age 45-75 08/24/2012 08/24/2007 Tetanus booster 02/26/2014 02/27/2004 DEXA/DXA scan for age 65+ 2015 08/28/2007 Medicare Wellness for age 65+ 2015 Pneumococcal series for age 65+ (1 of 1 - PCV) 2015 COVID-19 vaccine series ( season) 2023 11/23/2020, 10/26/2020 Influenza for age 65+ 06/23/2023 08/20/2007 Care Teams Pulverizer Mill Operator Relationship Specialty Start Date End Date Rox Maki MD [address] [place] [address] PCP - General Internal Medicine 04/03/18
--- OUTSIDE RECORDS SUMMARY | 2023-10-30 12:51 | XMS_ITS | Encounter Summary ---
Author Name Unknown Organization [facility] Address [address] [place] [address] Care Team Providers Care Parking Inspector Name Role Phone Rox Maki MD Primary Care Provider +1- [phone] Reason for Referral * Procedure/Equipment (Routine) - Incomplete Specialty Diagnoses / Procedures Referred By Contac t Referred To Contact Diagnoses Wrist arthritis Procedures CT Wrist Rt WO IV Cont Humphrey Devi MD [address] [place] [address] [place] [id number] Referral ID Status Reason Start Date Expiration Date V isits Requested Visits Authorized [id number] Incomplete 10/20/2023 04/17/2024 1 1 DER OPERATOR EXTERNAL TOOL Reason for Visit * Reason Comments WRIST PAIN Right * Consult/Transfer Care (Routine) - New Request Specialty Diagnoses / Procedures Referred By Aditi rivas Referred To Contact Orthopedics Diagnoses Primary osteoarthritis, right wrist Amado Tenorio MD [facility] YULI CHOWDARY [address] [address] Humphrey Devi MD [address] [place] [address] [place] [id number] Referral ID Status Reason Start Date Expiration Date V isits Requested Visits Authorized [id number] New Request 09/20/2023 12/19/2024 1 1 Encounter Details Date Type Department Care Team Description 10/20/2023 11:30 AM GRINDER OPERATOR EXTERNAL TOOL Office Visit [facility] [address] [place] [address] [place] [address] Humphrey Devi MD [address] [place] [address] [place] [address] Wrist arthritis (Primary Dx) Social History Tobacco Use Types Packs/Day Years Used Date Smoking Tobacco: Former Cigarettes Tobacco Cessation:Counseling Given: Not Answered Sex and Gender Information Value Date Recorded Sex Assigned at Not on file Gender Identity Not on file Sexual Orientation Not on file documented as of this encounter Last Filed Vital Signs Vital Sign Reading Time Taken Comments Blood Pressure - - Pulse - - Temperature - - Respiratory Rate - - Oxygen Saturation - - Inhaled Oxygen Concentration - - Weight 95.3 kg (210 lb) 10/20/2023 11:34 AM GRINDER OPERATOR EXTERNAL TOOL Height 175.3 cm (5' 9) 10/20/2023 11:34 AM GRINDER OPERATOR EXTERNAL TOOL Body Mass Index 31.01 10/20/2023 11:34 AM GRINDER OPERATOR EXTERNAL TOOL documented in this encounter Progress Notes * , Humphrey Love MD - 10/20/2023 11:30 AM CST Subjective: Pauline Casey is a 73-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 She stated that she had fairly minor fracture at age 13 but had no problems until a proximally 2 years ago when she began to develop increasing pain in the dorsal central aspect of the wrist. This increased dramatically a proximally 6 months ago after a fall. She rates her pain at 3 to 7/10. She uses a splint with some relief. Pain is mostly aching in nature. She also has some pain at night with movement. No numbness or tingling. Objective: There was swelling of the dorsum of the right wrist. Wrist motion was as follows: Extension / flexion right 40/60, left 60/65. There was tenderness over the dorsal central aspect of the right wrist. Saldaña's test was painful. No clunking. I reviewed previously performed radiographs dating back to 2020. There is progressive midcarpal arthritis involving the capitolunate joint. There is marked progression from the study of 09/18/2023. It is difficult to visualize all other components of the midcarpal joint. The radiolunate joint appears normal. Assessment: Osteoarthritis right midcarpal joint. Plan: I discussed with the patient the nature of the problem and the treatment options. If the radiolunate joint is normal then I would recommend scaphoid excision with 4 bone fusion. Otherwise I would suggest total right wrist arthrodesis. Pauline has been scheduled for a CT scan of the right wrist to help in decision making. I will review her upon its completion. DER OPERATOR EXTERNAL TOOL documented in this encounter Plan of Treatment Not on file documented as of this encounter Visit Diagnoses Diagnosis Wrist arthritis- Primary Unspecified arthropathy, forearm documented in this encounter Care Teams Parking Inspector Relationship Specialty Start Date End Date Rox Maki MD [address] [place] [address] PCP - General Internal Medicine 10/20/23 documented as of this encounter
--- OUTSIDE RECORDS SUMMARY | 2023-10-30 12:51 | XMS_ITS | Clinical Summary ---
Author Name Unknown Organization [facility] Address [address] [place] [address] Care Team Providers Care Community Engagement Specialist Name Role Phone Rox Maki MD Primary Care Provider +1- [phone] Source Comments You are receiving this document as you are listed as the primary care provider,follow-up provider, or the patient has been referred to you for consultation.This is in compliance with the Medicare andMedicaid EHR Incentive Program,which states Providers who transition their patient to another setting of careor provider of care or refers their patient to another provider of care shouldprovide summary care record for each transition of care or referral. [facility] Allergies Active Allergy Reactions Criticality Noted Date Comments Codeine Nausea 05/15/2007 Morphine Itching 05/15/2007 Nickel Rash Low 06/16/2020 Medications Medication Sig Dispensed Refills Start Date End Date Status cyanocobalamin (VITAMIN B12) 100 MCG tablet Take 5 Tablets (500 mcg) by mouth daily. 0 Active naproxen (NAPROSYN) 250 MG tablet Take 1 Tablet (250 mg) by mouth two times daily as needed. 0 10/04/2023 Active Active Problems No known active problems Encounters Date Type Department Care Team Description 10/20/2023 11:30 AM LAMINATED PLASTICS ASSEMBLER AND GLUER Office Visit [facility] [address] [place], [place] [address] Humphrey Devi MD Wrist arthritis (Primary Dx) 09/18/2023 Ancillary Procedure Radiology PACS [address] [place] [address] Humphrey MD from Last 3 Months Social History Tobacco Use Types Packs/Day Years Used Date Smoking Tobacco: Former Cigarettes Tobacco Cessation:Counseling Given: Not Answered Sex and Gender Information Value Date Recorded Sex Assigned at Not on file Gender Identity Not on file Sexual Orientation Not on file Last Filed Vital Signs Vital Sign Reading Time Taken Comments Blood Pressure - - Pulse - - Temperature - - Respiratory Rate - - Oxygen Saturation - - Inhaled Oxygen Concentration - - Weight 95.3 kg (210 lb) 10/20/2023 11:34 AM LAMINATED PLASTICS ASSEMBLER AND GLUER Height 175.3 cm (5' 9) 10/20/2023 11:34 AM LAMINATED PLASTICS ASSEMBLER AND GLUER Body Mass Index 31.01 10/20/2023 11:34 AM LAMINATED PLASTICS ASSEMBLER AND GLUER Plan of Treatment Health Maintenance Due Date Last Done Comments Colon Cancer Screening Plan Due 1950 Hep C Screening (Preventive Services) 1950 Medicare Annual Wellness Visit 1950 Mammogram 1950 COVID-19 Vaccine (#1) 04/16/1951 Cholesterol 1995 Dexa 2015 DTaP/Tdap/Td (3 - Tdap) 11/16/2031 11/16/19 22, 06/28/2012, 02/27/2004 Pneumococcal 65+ Yrs Completed 03/16/2017, 03/14/20 16 Zoster/Shingles Completed 12/22/2020, 08/05/2020 Influenza Completed 09/01/2023, 07/24, 08/10/2021, Additional history exists HepA Aged Out No longer eligi ble based on patient's age to complete this topic HepB Aged Out No longer eligi ble based on patient's age to complete this topic Hib Aged Out No longer eligi ble based on patient's age to complete this topic IPV (Polio) Aged Out No longer eligi ble based on patient's age to complete this topic MCV4 Aged Out No longer eligi ble based on patient's age to complete this topic Procedures Procedure Name Priority Date/Time Associated Diagnosis Comments FOREIGN IMAGE(S) XR WRIST RT Routine 09/18/2023 12:00 AM LAMINATED PLASTICS ASSEMBLER AND GLUER from Last 3 Months Results * Foreign Image(S) XR Wrist Rt (09/18/2023 12:00 AM LAMINATED PLASTICS ASSEMBLER AND GLUER) Narrative POCT - 10/20/2023 11:37 AM LAMINATED PLASTICS ASSEMBLER AND GLUER These outside images have been uploaded into PACS. If the results were provided, they will be located in the patient's chart under the Media or Imaging tab. Humphrey Devi MD RAD NON-REPORTABLES POCT from Last 3 Months Care Teams Community Engagement Specialist Relationship Specialty Start Date End Date Rox Maki MD [address] [place] [address] PCP - General Internal Medicine 10/20/23
--- OUTSIDE RECORDS SUMMARY | 2023-10-30 12:51 | XMS_ITS | Encounter Summary ---
Author Name Unknown Organization [facility] Address [address] [place] [address] Care Team Providers Care Orthopedic Rn Name Role Phone Unavailable Primary Care Provider Unavailabl e Reason for Visit * Procedure/Equipment (Routine) - Incomplete Specialty Diagnoses / Procedures Referred By Aditi t Referred To Contact Procedures Foreign Image(S) XR Wrist Rt Humphrey Devi MD [address] [facility] [place] [address] Referral ID Status Reason Start Date Expiration Date V isits Requested Visits Authorized [id number] Incomplete 10/20/2023 01/18/2025 1 1 Encounter Details Date Type Department Care Team Description 09/18/2023 Ancillary Procedure [facility] Radiology PACS [address] [place] [id number] Humphrey Devi MD [address] [facility] [address] [place] [id number] Social History Tobacco Use Types Packs/Day Years [...] XR WRIST RT Routine 09/18/2023 12:00 AM MENTAL HEALTH ASSISTANT documented in this encounter Results * Foreign Image(S) XR Wrist Rt (09/18/2023 12:00 AM MENTAL HEALTH ASSISTANT) Narrative POCT - 10/20/2023 11:37 AM MENTAL HEALTH ASSISTANT These outside images have been uploaded into PACS. If the results were provided, they will be located in the patient's chart under the Media or Imaging tab. Humphrey Devi MD RAD NON-REPORTABLES POCT documented in this encounter Visit Diagnoses Not on filedocumented in this encounter
--- NOTE | 2023-10-30 13:00 | CRLHL7_ITS ---
For Patients: As a result of the Century Cures Act, medical imaging exams and procedure reports are released immediately into your electronic medical record. You may view this report before your referring provider. If you have questions, please contact your health care provider. INDICATION: Pain. History of arthritis. History of fracture. COMPARISON: Plain film 18 September 2023 and 07 July 2021. TECHNIQUE: Multidetector imaging with axial coronal and sagittal formats. FINDINGS: Diffuse osteopenia. Large subchondral cystic lucency in the dorsal radius roughly at the lunate fossa. Widened scapholunate interval. Proximal migration of capitate into the widened scapholunate interval nearly contacting the radius. Stippled patchy indistinct mineralization of synovium in the radiocarpal joint. Moderate degenerative radiocarpal joint narrowing. Mild degenerative narrowing and minimal spurring distal radial ulnar joint. Prominent sclerosis and cysts in the lunate. Moderate marginal subchondral and intraosseous ganglion cysts in the other carpal ossicles. Sclerotic complete joint space loss at the triscaphe joint. Moderate osteoarthritis narrowing in radial subluxation with bulky marginal osteophytes and small ossicles at the 1st carpometacarpal joint. The other carpometacarpal joints show minimal degenerative arthrosis most pronounced at the common 4th and 5th. No acute fracture or significant bone lesion appreciated in the field of view. No inflammatory arthritis finding appreciated. IMPRESSION: 1. SLAC wrist. 2. Severe osteoarthritis radiocarpal joint, triscaphe joint and 1st carpometacarpal joint. Mild osteoarthritis distal radioulnar joint. Please note that all CT scans at this facility use dose modulation, iterative reconstruction, and/or weight-based dosing when appropriate to reduce radiation dose to as low as reasonably achievable. Dictated by Stefan Ortega MD @ 10/31/2023 1:40:45 PM (Electronically Signed)
== END 2023-10-30 12:49 | disposition home or self-care (01) ==
LOC: CT 12:50
PROVIDERS: PCP Internal Medicine; Visit Provider Orthopaedic Surgery
DX: M25.531 Pain in right wrist (principal); M19.031 Primary osteoarthritis, right wrist
CPT/HCPCS: 73200

== ENCOUNTER 2024-01-20 10:52 | Outpatient (CLI) | payer MEDICARE, SELFPAY | END 2024-01-20 10:53 | disposition home or self-care (01) | LOC: NFLDREF 01-22 10:38 | PROVIDERS: PCP Internal Medicine; Referring Provider Internal Medicine; Visit Provider Nurse Practitioner | DX: N30.01 Acute cystitis with hematuria (principal); B95.2 Enterococcus as the cause of diseases classified elsewhere | CPT/HCPCS: 87086; 87186 ==

== ENCOUNTER 2024-01-25 13:15 | Outpatient (RCR) | payer MEDICARE, SELFPAY ==
--- NOTE | 2023-12-07 14:27 | PT.OPEX ---
PT [facility] Eval PT [facility] Outpatient Eval Start: 12/07/23 13:05 Freq: Status: Active Protocol: Document 12/07/23 13:06 CRP (Rec: 12/07/23 14:18 CRP [id number]) E-signed By Marvin Dejesus PT Physical Therapy Outpatient Evaluation Insurance Information Recert Due Date 03/06/24 Insurance Name Medicare B,are Medical Diagnosis Cervical Spine Pain Referring MD Dr Diaz Subjective Subjective About 6 months ago she began having neck pain. Pain in down the center of the neck. Can sometimes go out to the shoulders. Looking up and down are the biggest issue. Pt reports that sleep is ok but can be affected to some degree. In the morning she needs to stretch a little to get going. Does have times of numbness/tingling into the arms down the the hand. This has been an issue off and on for a couple of years. Had ablation done about 6 weeks ago. Has been to a chiropractor as well. Since the ablation she now has pain looking up and down. Prior to the ablation she only had pain with turning head side to side. 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 Work is the most painful. She needs to push around carts. Pain can get up to 8/10. Pain Comments 8/10 Current Work Status Medic Technician Objective Other/Pertinent Objective Cervical ROM: Flex min/mod dec with pain, Ext deedee dec with pain, Bilat rot 60 deg with stiffness and pain. bilat SB min dec with contralateral tightness. Bilalt UE ROM WNL MMT: myotomes WNL Sensation intact to light touch Segmental testing: Distraction negative. UPAs painful and hypomobile throughout bilat cspine. Assessment Assessment/Impression Pt presents to the clinic with signs and sxs consistent with cervical spine DDD/DJD and resulting painful loss of motion. With this the pt shows significant painful hypomobility of cervical spine segments and poor CT spine motor control. Skilled PT is necessary to incorporate ther ex, nm benjamin, manual therapy and pt education to decrease pain and improve functional mobility. Plan of Care Rehabilitation Potential Good Physical Therapy Goals 1. Pt will be independent with HEP in 6 week. 2. Pt will look down to read without c.o pain in 8 weeks. 3. Pt will complete work shift with 75% decrease in pain in 12 weeks. Coordination/Communication With Referral Source Treatment Plan/Direct Interventions Joint Mobilization,Manual Therapy,Neuromuscular Re-ed, Self-Care/Home Management, Therapeutic Activities, Therapeutic Exercises,Traction (Mechanical) Frequency/Duration 1-2x/wk for 12 weeks Patient Will Be Discharged From Therapy Completion of LTG(s),Skills Plateau,Independent w/HEP, Independently Progressing Evaluation Billing Untimed Code Treatment Minutes 30 Complexity Moderate Certification Information Initial Certification Date 12/07/23 Ending Certification Date 03/06/24 Provider Signature Shows Agreement With POC & Medical Necessity Physician Signature & Date Requested Please Sign/Date Here Physician Comment/Change : Physician NPI Number #
== END 2024-05-24 23:59 | disposition home or self-care (01) ==
PROVIDERS: PCP Internal Medicine; Visit Provider Family Medicine
DX: M54.2 Cervicalgia (principal); Z51.89 Encounter for other specified aftercare
CPT/HCPCS: 97110; 97140; 97162

== ENCOUNTER 2024-05-24 08:59 | Outpatient (CLI) | payer MEDICARE, SELFPAY ==
--- OUTSIDE RECORDS SUMMARY | 2024-05-26 06:02 | XMS_ITS | Clinical Summary ---
[facility] Address [address], [place] [address] Care Team Providers Care Outreach Clinician Name Role Phone Rox Mkai MD Primary Care Provider +1- [phone] Source Comments You are receiving this document [...] for each transition of care or referral. [facility] Active Allergy Reactions Criticality Noted Date Comments Codeine Nausea 05/15/2007 Morphine Itching 05/15/2007 Nickel Rash Low 06/16/2020 Medications Medication Sig Dispensed Refills Start Date End Date Status cyanocobalamin (VITAMIN B12) 100 MCG tablet Take 5 Tablets (500 mcg) by mouth daily. Active naproxen (NAPROSYN) 250 MG tablet Take 1 Tablet (250 mg) by mouth two times daily as needed. 10/04/2023 Active Active Problems No known active problems Social History Tobacco Use Types Packs/Day Years [...] 95.3 kg (210 lb) 10/20/2023 11:34 AM WIRELESS ARCHITECT Height 175.3 cm (5' 9) 10/20/2023 11:34 AM WIRELESS ARCHITECT Body Mass Index 31.01 10/20/2023 11:34 AM WIRELESS ARCHITECT Plan of Treatment Health Maintenance Due Date Last Done Comments Colon Cancer Screening Plan Due 1950 Hep C Screening (Preventive Services) 1950 Medicare Annual Wellness Visit 1950 Mammogram 1950 Cholesterol 1995 Dexa 2015 COVID-19 Vaccine ( season) 2023 05/02/2023, 08/22/2022, 02/17/2022, Additional history exists Influenza (#1) 2024 09/01/2023, 07/24, 08/10/2021, Additional history exists DTaP/Tdap/Td (3 - Tdap) 11/16/2031 11/16/19 22, 06/28/2012, 02/27/2004 Pneumococcal 65+ Yrs Completed 03/16/2017, 03/14/20 16 Zoster/Shingles Completed 12/22/2020, 08/05/2020 HepA Aged Out No longer eligi ble [...] on patient's age to complete this topic Care Teams Outreach Clinician Relationship Specialty Start Date End Date Rox Maki MD [address] [place] [address] PCP - General Internal Medicine 10/20/23
--- OUTSIDE RECORDS SUMMARY | 2024-05-26 06:02 | XMS_ITS | Encounter Summary ---
Author Organization [facility] Address [address] [place] [address] Care Team Providers Care Crts Name Role Phone Rox Maki MD Primary Care Provider +1- [phone] Reason for Visit * Reason Comments MRI Results Encounter Details Date Type Department Care Team (Late st Contact Info) Description 10/30/2023 Telephone [facility] [address] [place] [address] , Humphrey Love MD [address] [place] [address] MRI Results Social History Tobacco Use Types Packs/Day Years Used Date Smoking Tobacco: Former Cigarettes Sex and Gender Information Value Date Recorded Sex Assigned at Not on file Gender Identity Not on file Sexual Orientation Not on file documented as of this encounter Nursing Notes * Gena Barbosa - 10/30/2023 2:44 PM CST RESULTS What test/results are you calling about: R wrist CT results Where was the test done: [facility] When did you have it done: today, patient is needing to know if she needs to come back in to go over these results or if she can mail the disc and get a call to go over the results. [Clinical Timber Skidder/Wafer Cleaner:] Verified no action plan listed in last office visit for reviewing results: Completed If a prescription is needed, what pharmacy would you like that sent to? [Clinical Timber Skidder/Wafer Cleaner: Was the pharmacy entered into the Preferred Pharmacy Field] Yes If we are unable to reach you can we leave a detailed message on your voicemail? Yes If we are unable to reach you can we send you a message in [employer]? No [Radiology Director/Wafer Cleaner: Relay to patient; We make every effort to get back to you sameday, however it may take 1-2 business days depending on the nature of the communication.] STANT MANAGER PT documented in this encounter Plan of Treatment Not on file documented as of this encounter Visit Diagnoses Not on filedocumented in this encounter Care Teams Crts Relationship Specialty Start Date End Date Rox Maki MD [address] [place] [address] PCP - General Internal Medicine 10/20/23 documented as of this encounter
--- OUTSIDE RECORDS SUMMARY | 2024-05-26 06:02 | XMS_ITS | Clinical Summary ---
Author Organization [facility] Address [place], [place] [address] Care Team Providers Care Customer Care Representative Name Role Phone Rox Maki MD Primary Care Provider +1- [phone] Allergies Active Allergy Reactions Criticality Noted Date [...] cyanocobalamin (VITAMIN B-12) 100 mcg tablet Daily Active mirabegron EXTENDED-release (MYRBETRIQ) 50 mg tabletIndications:Ove [...] Outcome GA Total Labor Labor/2nd/3rd Weight Sex Type Anes PTL Felicita A1 A5 Name Clin Term Term Term Last Filed Vital Signs Vital Sign Reading Time Taken Comments Blood Pressure 153/81 12/20/2023 11:06 AM PROGRAM SUPPORT CLERK Pulse 80 12/20/2023 11:06 AM PROGRAM SUPPORT CLERK Temperature 37.2 ??C (98.9 ??F) 09/24/2008 1:46 PM CS T Respiratory Rate 16 10/14/2020 2:13 PM PROGRAM SUPPORT CLERK Oxygen Saturation 100% 12/20/2023 11: 06 AM PROGRAM SUPPORT CLERK Inhaled Oxygen Concentration - - Weight 99.7 kg (219 lb 12.8 oz) 024 11:06 AM PROGRAM SUPPORT CLERK Height 174.8 cm (5' 8.8) 08/21/2007 3:47 PM CDT Body Mass Index - - Plan of Treatment Health Maintenance Due Date Last Done Comments Tdap 1961 Depression screening for age 12+ 1962 BMI (ht and wt on same day) for age 18+ 1968 Hepatitis C screening for ag e 18-79 1968 Colonoscopy through age 75 1995 Zoster (shingles) series for age 50+ (1 of 2) 2000 Mammogram for age 45-75 06/24/2010 06/24/2009, 08/21 Lipids for age 45-75 08/24/2012 08/24/2007 Tetanus booster 02/26/2014 02/27/2004 DEXA/DXA scan for age 65+ 2015 08/28/2007 Medicare Wellness for age 65+ 2015 Pneumococcal series for age 65+ (1 of 1 - PCV) 2015 COVID-19 vaccine series (2022- season) 2023 05/02/2023, 08/22/2022, 02/17/2022, Additional history exists Influenza for age 65+ 06/23/2024 08/20/2007 Procedures Procedure Name Priority Date/Time Associated Diagnosis Comments SCAN-MAMMOGRAPHY REPORT 06/24/2009 12:00 AM CDT XR DXA BONE DENSITY 2 SITES AXIAL Routine 08/28/2007 4:16 PM PROGRAM SUPPORT CLERK Screening Osteoporosis LIPID PANEL Routine 08/24/2007 7:22 AM CDT Screening Lipid Disorders from Last 3 Months or Most Recently Relevant to Health Maintenance Results * SCAN-MAMMOGRAPHY REPORT (06/24/2009 12:00 AM CDT) Anatomical Region Laterality Modality Other Narrative Procedure Note Scanner - 06/24/2009 12:00 AM CDT Scanner OTHER * XR DEXA BONE DENSITY 2 SITES (08/28/2007 4:16 PM PROGRAM SUPPORT CLERK) Anatomical Region Laterality Modality Spine, HIPS, HIPL, HIPR Other 08/28/2007 4:16 PM PROGRAM SUPPORT CLERK Narrative 09/03/2007 9:57 AM PROGRAM SUPPORT CLERK Please see scanned document for results of this study. Procedure Note Gay Santacruz D - 09/03/2007 Please see scanned document for results of this study. Lela Sierra DO DEXA * LIPID PANEL (08/24/2007 7:22 AM CDT) CHOLESTEROL,TOTAL 191 110 - 199 mg/dL [facility] TRIGLYCERIDES 112 <150 mg/dL [facility] HDL CHOLESTEROL 60 >40 mg/dL [facility] CHOL/HDL RATIO 3.18 <4.51 [facility] LDL CHOLESTEROL 109 <131 mg/dL [facility] PATIENT STATUS Fasting [facility] Blood specimen (specimen) BLOOD SPECIMEN / Unknown 08/24/2007 7:22 AM CDT 08/24/2007 7:17 AM CDT Lela Sierra DO CHEMISTRY [facility] [address] [place] [address] from Last 3 Months or Most Recently Relevant to Health Maintenance Care Teams Customer Care Representative Relationship Specialty Start Date End Date Rox Maki MD [address] [place] [address] PCP - General Internal Medicine 04/03/18
== END 2024-05-24 09:00 | disposition home or self-care (01) ==
LOC: NFLDREF 05-26 06:01
PROVIDERS: PCP Internal Medicine; Referring Provider Internal Medicine; Visit Provider Nurse Practitioner Family
DX: N30.01 Acute cystitis with hematuria (principal)
CPT/HCPCS: 87086; 87186

== ENCOUNTER 2024-08-16 08:00 | Outpatient (RCR) | payer MEDICARE, SELFPAY ==
--- NOTE | 2024-08-02 10:46 | PT.OPEX ---
PT [place] Outpatient Eval PT [facility] Outpatient Eval Start: 08/02/24 10:25 Freq: Status: Active Protocol: Document 08/02/24 10:27 DELIA (Rec: 08/02/24 10:42 DELIA [id number]) E-signed By Annia Saucedo DPT Physical Therapy Outpatient Evaluation Insurance Information Recert Due Date 10/31/24 Insurance Name Medicare B,are Medical Diagnosis ITB syndrome L LE Treating Diagnosis L knee pain, impaired L knee ROM, core/hip/glut/quad weakness, L hamstring/ITB/quad /hip flexor tightness, limited tolerance for extended walking Subjective Subjective Patient reports L medial and lateral knee pain for about the last 6 weeks. She denies any injury, trauma, falls. She has hx of L TKA a couple of years ago. Pain increases with walking, stairs. 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 She is using celebrex currently, started several months ago for her neck pain. She is going to switch over to naproxsyn this next week. Also using tylenol as needed for her general aches/pains. She has not tried ice/heat. Not using knee brace or compression. She has not been doing any exercises, stretches lately. Pain range 0-5/10. Denies pain at rest. Sleeping fine. 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 Pain range 0-5/10. Patient denies pain at rest. She reports increased medial and lateral knee pain with walking. Patient is lacking full ext with L knee ROM. L knee ROM 0 -5-122 degrees. R knee ROM 0- 0-122 degrees. Patient is tight, tender with palpation L lateral knee, L ITB, L medial knee region. Patient with tight hamstrings, ITB, quad, hip flexor. Gait is limping, antalgic, lacking full L knee ext in standing/walking. She reports increased pain with walking, stairs. Able to initiate HEP this session. Patient with bilateral hamstring cramping and L quad cramping with exercises this session. She would benefit from skilled PT for pain/sx management, improved L knee ROM, improved L LE flexibility /mobility, improved core/hip/ glut/quad strength, improved gait, and establishment of HEP . Plan of Care Rehabilitation Potential Good Physical Therapy Goals 1. Decrease L knee pain to less than/equal to 3/10 with daily/work activities and with the progression of PT activities over the next 4-6 weeks. 2. Improve L knee ROM to 0- 120 degrees or greater over the next 6-8 weeks for return to functional knee ROM, decreased stress to L knee, and improved gait mechanics. 3. Improve L knee/LE flexibility/mobility/strength over the next 8-10 weeks for return to extended standing/ walking/stairs and daily/work activities without flare up of pain and improved gait with full L knee ext. 4. Patient will be I with HEP within 10 weeks for progression toward above goals, ongoing self-management of pain/sx, ongoing self improvements in L knee ROM/flexibility/ strength, return to normal gait, and daily/work activities without flare up of pain. Coordination/Communication With Referral Source Treatment Plan/Direct Interventions Gait Training,Manual Therapy, Therapeutic Exercises Frequency/Duration 1x/week Patient Will Be Discharged From Therapy Completion of LTG(s),Skills Plateau,Independent w/HEP, Independently Progressing Evaluation Billing Untimed Code Treatment Minutes 26 Complexity Moderate Certification Information Initial Certification Date 08/02/24 Ending Certification Date 10/31/24 Provider Signature Required Yes Provider Signature Shows Agreement With POC & Medical Necessity Physician NPI Number Write NPI# Here Physician Comment/Change : Physician Signature & Date Requested Please Sign/Date Here
== END 2024-11-05 10:50 | disposition home or self-care (01) ==
PROVIDERS: PCP Internal Medicine; Visit Provider Orthopaedic Surgery
DX: M76.32 Iliotibial band syndrome, left leg (principal); Z96.652 Presence of left artificial knee joint; M25.562 Pain in left knee; Z74.09 Other reduced mobility; R29.898 Other symptoms and signs involving the musculoskeletal system; M62.89 Other specified disorders of muscle; Z51.89 Encounter for other specified aftercare
CPT/HCPCS: 97110; 97140; 97162

== ENCOUNTER 2024-10-07 08:57 | Emergency (ER) | payer OTHER, MEDICARE, SELFPAY ==
[2024-10-07 09:01] VITALS: BP 159/70; PULSE 94; RESP 16; TEMP 36.4; O2SAT 96; BMI 31.0
--- NOTE | 2024-10-07 09:14 | CRLHL7_ITS ---
For Patients: As a result of the Century Cures Act, medical imaging exams and procedure reports are released immediately into your electronic medical record. You may view this report before your referring provider. If you have questions, please contact your health care provider. INDICATION: Fall TECHNIQUE: Noncontrast axial CT of the head. Coronal and sagittal reformats. Bone and soft tissue algorithms. COMPARISON: Same day CT face FINDINGS: Right frontal scalp/supraorbital facial soft tissue hematoma. Intact calvarium. Hyperostosis frontalis interna. No acute intracranial hemorrhage or abnormal extra-axial fluid collection. No midline shift, hydrocephalus or herniation. Preserved hargrove-white matter differentiation. Normal white matter attenuation. Mild calcific plaquing at the carotid siphons. Clear visualized paranasal sinuses and mastoid air cells. Mild right-sided cerumen. Bilateral lens implants. IMPRESSION: 1. Right frontal scalp/supraorbital facial soft tissue hematoma. 2. No skull fracture or acute intracranial hemorrhage identified. Please note that all CT scans at this facility use dose modulation, iterative reconstruction, and/or weight-based dosing when appropriate to reduce radiation dose to as low as reasonably achievable. Dictated by Astrid Garcia MD @ 10/07/2024 9:49:10 AM (Electronically Signed)
--- NOTE | 2024-10-07 09:14 | CRLHL7_ITS ---
For Patients: As a result of the Cures Act, medical imaging exams and procedure reports are released immediately into your electronic medical record. You may view this report before your referring provider. If you have questions, please contact your health care provider. Indication: Fall Technique: Three views of the left knee. Comparison: 07/15/2024. Findings: Postsurgical changes from left total knee arthroplasty. No acute fracture or hardware complication. Chronic bony fragment is seen along the superior pole of the patella. Impression: Postsurgical changes from left total knee arthroplasty. No acute fracture or hardware complication. Dictated by Marek Carter MD @ 10/07/2024 10:16:46 AM (Electronically Signed)
--- NOTE | 2024-10-07 09:14 | CRLHL7_ITS ---
For Patients: As a result of the Century Cures Act, medical imaging exams and procedure reports are released immediately into your electronic medical record. You may view this report before your referring provider. If you have questions, please contact your health care provider. Indication: Fall Technique: Helical axial sections were obtained through the facial skeleton, mandible and adjacent structures without intravenous contrast material. Data was reformatted not only in axial but also coronal planes. Comparison: Same-day CT head Findings: Soft tissue hematoma involving the right frontal scalp and supraorbital region. The facial bones appear grossly intact, without evidence of acute fracture. The bony orbits and their contents appear atraumatic. Bilateral lens implants. No radiopaque foreign body or abnormal soft tissue emphysema. The sinonasal cavities are clear. Mild rightward nasal septal deviation. The mastoid air cells are clear. Right-sided cerumen. The temporomandibular joints appear within normal limits. Calcific plaquing at the carotid siphons. Impression: 1. Right frontal scalp/supraorbital soft tissue hematoma. 2. No acute facial bone fracture or overt globe injury identified. Please note that all CT scans at this facility use dose modulation, iterative reconstruction, and/or weight-based dosing when appropriate to reduce radiation dose to as low as reasonably achievable. Dictated by Astrid Garcia MD @ 10/07/2024 9:52:20 AM (Electronically Signed)
--- NOTE | 2024-10-07 09:14 | CRLHL7_ITS ---
For Patients: As a result of the Century Cures Act, medical imaging exams and procedure reports are released immediately into your electronic medical record. You may view this report before your referring provider. If you have questions, please contact your health care provider. Indication: Fall Technique: Noncontrast axial CT of the cervical spine with coronal and sagittal reformats. Comparison: MRI cervical spine report 03/21/2023 Findings: Mild nonspecific reversal of the normal cervical lordosis. Trace anterolisthesis at C3-4 and C4-5. Craniocervical articulation appears within normal limits. Mild chronic anterior wedge configuration of C5 and C6. No acute osseous abnormality. Scattered spondylosis, with neural foraminal narrowing greatest on the right at C3-4, C5-6 and C6-7, bilaterally at C7-T1 low-grade spinal canal narrowing at C3-4. Hypodense thyroid nodules, the largest on the left measuring 1.8 cm included lung apices are clear without evidence of pneumothorax. Impression: 1. No evidence of acute fracture or traumatic malalignment in the cervical spine. 2. Cervical spondylosis and low-grade spondylolisthesis as detailed. Please note that all CT scans at this facility use dose modulation, iterative reconstruction, and/or weight-based dosing when appropriate to reduce radiation dose to as low as reasonably achievable. Dictated by Astrid Garcia MD @ 10/07/2024 9:58:44 AM (Electronically Signed)
--- NOTE | 2024-10-07 09:14 | CRLHL7_ITS ---
For Patients: As a result of the Cures Act, medical imaging exams and procedure reports are released immediately into your electronic medical record. You may view this report before your referring provider. If you have questions, please contact your health care provider. Indication: Fall Technique: Three views of the right hand. Comparison: None. Findings: Osteopenia. Marked severe degenerative changes of the radiocarpal and 1st carpometacarpal joints. Widening of the scapholunate interval. Moderate to severe narrowing and erosive changes of the 3rd proximal interphalangeal and 2nd through 5th distal interphalangeal joints. No definite acute displaced fracture or malalignment. Impression: 1. No definite acute displaced fracture or malalignment, although osteopenia and degenerative changes limit evaluation. 2. Scapholunate advanced collapse. 3. Moderate to severe degenerative changes of the hand and wrist as described above. Dictated by Marek Carter MD @ 10/07/2024 10:14:37 AM (Electronically Signed)
--- NOTE | 2024-10-07 09:16 | ED_ITS ---
HPI - Fall General Date Seen: 10/07/24 Chief Complaint: Fall/Minor Trauma Stated Complaint: Fall - hit head Time Seen by Provider: 10/07/24 09:08 Source: patient Mode of arrival: ambulatory Limitations: no limitations History of Present Illness HPI Narrative: Patient is a 73-year-old female presenting to the emergency department for a fall. She states she was at work when her foot got caught causing her to trip and fall. She states she had her left knee, right hand, and face. Currently she has some mild pain to her medial left knee, her right hand at the base of the 5th finger, and states most her pain is to her right forehead. There is a hematoma noted to her right forehead. Does have some swelling noted to her right hand consistent with were pain is. She is not on any blood thinners. Denies dizziness, lightheadedness, weakness, numbness, vision changes, chest pain, shortness of breath. Denies any symptoms prior to her fall. Denies any neck pain. No other concerns noted. Related Data Home Medications ?Medication ?Instructions ?Recorded ?Confirmed cholecalciferol (vitamin D3) 50 2,000 unit PO DAILY 07/06/22 10/07/24 mcg (2,000 unit) capsule cranberry 500 mg capsule 500 mg PO DAILY 07/06/22 10/07/24 cyanocobalamin (vitamin B-12) 3,000 mcg PO DAILY 07/06/22 10/07/24 3,000 mcg capsule multivitamin 1 tab PO DAILY 07/06/22 10/07/24 omega 7-rdv-kko-fish oil 100 1 cap PO DAILY 07/06/22 10/07/24 mg-160 mg-1,000 mg capsule (Fish Oil) acetaminophen 500 mg tablet 500 mg PO Q6H PRN 03/23/23 07/15/24 (Tylenol Extra Strength) vitamin K2 90 mcg capsule 90 mcg PO QDAY 07/10/23 10/07/24 Previous Rx's ?Medication ?Instructions ?Recorded naproxen 250 mg tablet 250 mg PO BID PRN pain #60 tabs 08/06/24 Allergies Allergy/AdvReac Type Severity Reaction Status Date / Time morphine Allergy Mild itching Verified 10/07/24 09:07 nickel Allergy Mild rash when Verified 10/07/24 09:07 she wears cheap jewlery codeine AdvReac Mild GI upset Verified 10/07/24 09:07 hydrocodone AdvReac Mild GI upset Verified 10/07/24 09:07 Review of Systems Status of ROS: Reports: 10 or more systems reviewed and unremarkable except as noted in History and below PFSH PFSH Surgical History History of total left knee replacement (09/01/22) ?Z96.652 - Presence of left artificial knee joint (ICD-10) Status post total right knee replacement (03/15/16) ?Z96.651 - Presence of right artificial knee joint (ICD-10) History of bladder suspension procedure ?Z98.890 - Other specified postprocedural states (ICD-10) ?Z87.448 - Personal history of other diseases of urinary system (ICD-10) Status post right foot surgery (07/04/14) ?Z98.890 - Other specified postprocedural states (ICD-10) History of total hip replacement (11/18/05) ?Z96.649 - Presence of unspecified artificial hip joint (ICD-10) History of cholecystectomy (~1968) ?Z90.49 - Acquired absence of other specified parts of digestive tract (ICD- 10) History of bunionectomy (09/24/09) ?Z98.890 - Other specified postprocedural states (ICD-10) History of blepharoplasty (2021) ?Z98.890 - Other specified postprocedural states (ICD-10) History of bilateral cataract extraction ?Z98.41 - Cataract extraction status, right eye (ICD-10) ?Z98.42 - Cataract extraction status, left eye (ICD-10) History of foot surgery (07/07/12) ?Z98.890 - Other specified postprocedural states (ICD-10) Family History Sister Diabetes Osteoarthritis Mother Lung cancer Father Leukemia Social History Smoking Status: Former smoker What tobacco products do you use: cigarettes Smoking quit date/years: >15 years ago Do you use any of these nicotine containing products: None Second hand tobacco smoke exposure: No How often do you have a drink containing alcohol: 4 or more times a week Alcohol type: wine How many standard drinks containing alcohol do you have on a typical day: 1 or 2 How often do you have six or more drinks on one occasion: Never AUDIT-C Alcohol total score: 4 Non-prescribed substance use: denies use Caffeine: Yes (coffee, 2-3 cups/day) Exam Narrative: Exam Narrative: Const: Well-nourished, Well-developed, in mild distress Eyes: PERRL, no conjunctival injection, and symmetrical lids HENT: Atraumatic external nose and ears. Moist mucous membranes. Hematoma noted above right eye with a small abrasion Neck: Symmetric, trachea midline, No thyromegaly. CVS: RRR, No murmurs or gallops. Peripheral pulses 2+ and equal in all extremities RESP: Unlabored respiratory effort. Clear to auscultation bilaterally. GI: Nontender/Nondistended, No rebound or guarding. MSK:Extremities w/o deformity, Normal Active ROM, swelling and tenderness noted base of right 5th finger. Mild tenderness noted to the medial portion of left knee Skin: Warm, Dry. No rashes or lesions. Neuro: Normal Muscle tone, No focal neurological deficits. Psych: Awake, Alert, & Oriented x3. Appropriate mood and affect. Const: Vital Signs, click to edit/add: Vital Signs - 24 hr 10/07/24 09:01 Temperature 97.6 F Pulse Rate [Right Pulse Oximeter] 94 Respiratory Rate 16 Blood Pressure [Ri ght Upper Arm] 159/70 H Pulse Oximetry 96 Oxygen Delivery Me thod Room Air Course Vital Signs Vital signs: Initial Vital Signs Temperature 97.6 F 10/07/24 09:01 Temperature Source Temporal Artery Scan 10/07/24 09:01 Pulse Rate 94 10/07/24 09:01 Pulse Rhythm Regular 10/07/24 09:01 Respiratory Rate 16 10/07/24 09:01 Blood Pressure 159/70 H 10/07/24 09:01 Blood Pressure Mean 99 10/07/24 09:01 Blood Pressure Position Sitting 10/07/24 09:01 Pulse Oximetry 96 10/07/24 09:01 Oxygen Delivery Method Room Air 10/07/24 09:01 Vital Signs Temperature 97.6 F 10/07/24 09:01 Pulse Rate 94 10/07/24 09:01 Respiratory Rate 16 10/07/24 09:01 Blood Pressure 159/70 H 10/07/24 09:01 Pulse Oximetry 96 10/07/24 09:01 Oxygen Delivery Method Room Air 10/07/24 09:01 Temperature 97.6 F 10/07/24 09:01 Pulse Rate 94 10/07/24 09:01 Respiratory Rate 16 10/07/24 09:01 Blood Pressure 159/70 H 10/07/24 09:01 Pulse Oximetry 96 10/07/24 09:01 Oxygen Delivery Method Room Air 10/07/24 09:01 MDM - Fall MDM Narrative Medical decision making narrative: Patient is a 73-year-old female presenting after a fall. Will CT scan her head, cervical spine, facial bones. Will also x-ray her left knee and right hand. She denies any other injuries. Imaging all returned showing no acute concerning abnormalities. Patient is doing well at this time. She is safe for discharge. Imaging Data CT scan head: Attestation: I have reviewed the pertinent imaging results. Radiologist's impression: 1. Right frontal scalp/supraorbital facial soft tissue hematoma. 2. No skull fracture or acute intracranial hemorrhage identified. Please note that all CT scans at this facility use dose modulation, iterative reconstruction, and/or weight-based dosing when appropriate to reduce radiation dose to as low as reasonably achievable. Dictated by Astrid Garcia MD @ 10/07/2024 9:49:[address] scan cervical spine: Attestation: I have reviewed the pertinent imaging results. Radiologist's impression: 1. No evidence of acute fracture or traumatic malalignment in the cervical spine. 2. Cervical spondylosis and low-grade spondylolisthesis as detailed. Please note that all CT scans at this facility use dose modulation, iterative reconstruction, and/or weight-based dosing when appropriate to reduce radiation dose to as low as reasonably achievable. Dictated by Astrid Garcia MD @ 10/07/2024 9:58:44 AM ----- ADDENDUM ----- It should also be noted in the impression, that there is a 1.8 cm nodule in the left thyroid lobe. Consider thyroid ultrasound further characterization if clinically appropriate. Dictated by Astrid Garcia MD @ Oct 07 2024 10:05AM CT scan face: Attestation: I have reviewed the pertinent imaging results. Radiologist's impression: 1. Right frontal scalp/supraorbital soft tissue hematoma. 2. No acute facial bone fracture or overt globe injury identified. Please note that all CT scans at this facility use dose modulation, iterative reconstruction, and/or weight-based dosing when appropriate to reduce radiation dose to as low as reasonably achievable. Dictated by Astrid Garcia MD @ 10/07/2024 9:52:20 AM X-ray right hand: Attestation: I have reviewed the pertinent imaging results. Radiologist's impression: 1. No definite acute displaced fracture or malalignment, although osteopenia and degenerative changes limit evaluation. 2. Scapholunate advanced collapse. 3. Moderate to severe degenerative changes of the hand and wrist as described above. Dictated by Marek Carter MD @ 10/07/2024 10:14:37 AM X-ray left knee: Attestation: I have reviewed the pertinent imaging results. Radiologist's impression: Postsurgical changes from left total knee arthroplasty. No acute fracture or hardware complication. Dictated by Marek Carter MD @ 10/07/2024 10:16:46 AM Discharge Plan Discharge Clinical Impression: Closed head injury Qualifiers: Encounter type: initial encounter Qualified Code(s): S09.90XA - Unspecified injury of head, initial encounter Patient Disposition: Home, Self-Care Condition: Stable Instructions: Head Injury (ED) Additional Instructions: Follow-up with primary care provider for a thyroid nodule seen on CT scan for an ultrasound. Return to emergency department for new or worsening symptoms Prescriptions: No Action cholecalciferol (vitamin D3) 50 mcg (2,000 unit) capsule 2,000 unit PO DAILY multivitamin Tablet 1 tab PO DAILY Fish Oil 100-160-1,000 mg capsule 1 cap PO DAILY cyanocobalamin (vitamin B-12) 3,000 mcg capsule 3,000 mcg PO DAILY cranberry 500 mg capsule 500 mg PO DAILY Rx Instructions: administer with a meal acetaminophen [Tylenol Extra Strength] 500 mg tablet 500 mg PO Q6H PRN vitamin K2 90 mcg capsule 90 mcg PO QDAY naproxen 250 mg tablet 250 mg PO BID PRN (Reason: pain) Qty: 60 1RF Rx Instructions: Do not take with other NSAIDs Follow Up/Referrals: Rox Maki MD [Primary Care Provider] - Stand Alone Forms: [facility] Info Instructions
== END 2024-10-07 11:00 | disposition home or self-care (01) ==
PROVIDERS: Emergency Provider Student in an Organized Health Care Education/Training Program; PCP Internal Medicine
DX: S09.90XA Unspecified injury of head, initial encounter (principal); M25.562 Pain in left knee; W01.0XXA Fall on same level from slipping, tripping and stumbling without subsequent striking against object, initial encounter; Y99.0 Civilian activity done for income or pay
CPT/HCPCS: 70450; 70486; 72125; 73130; 73562; 99283; 99285

== ENCOUNTER 2024-10-25 11:04 | Outpatient (CLI) | payer MEDICARE, SELFPAY ==
--- NOTE | 2024-10-25 11:00 | CRLHL7_ITS ---
For Patients: As a result of the Cures Act, medical imaging exams and procedure reports are released immediately into your electronic medical record. You may view this report before your referring provider. If you have questions, please contact your health care provider. INDICATION: nontoxic single thyroid nodule COMPARISON: CT 10/07/2024 TECHNIQUE: Greene scale and color Doppler images were acquired of the thyroid gland. FINDINGS: Solid hypoechoic nodule inferior pole left thyroid lobe measures 7 x 5 x 4 millimeters, TR 4. Slightly heterogeneous solid nodule left thyroid lobe midportion measures 2.2 x 1.5 x 1.7 cm, TR 4. Hypoechoic nodule right thyroid lobe inferior pole measures 5 x 5 x 5 millimeters, TR 4. Isthmus measures 2.9 millimeters. The right lobe measures 3.4 x 1.0 x 1.6 cm and the left lobe measures 3.3 x 2.2 x 1.8 cm in size. The color Doppler images demonstrate normal vascularity. There is no evidence of cervical lymphadenopathy or parathyroid mass. IMPRESSION: 2.2 cm TR 4 nodule left thyroid lobe. FNA recommended. Dictated by Bryce Page MD @ 10/25/2024 11:41:42 AM (Electronically Signed)
== END 2024-10-25 11:05 | disposition home or self-care (01) ==
LOC: US 11:06
PROVIDERS: PCP Internal Medicine; Visit Provider Internal Medicine
DX: E04.1 Nontoxic single thyroid nodule (principal)
CPT/HCPCS: 76536

== ENCOUNTER 2024-11-05 09:58 | Outpatient (CLI) | payer MEDICARE, SELFPAY ==
--- NOTE | 2024-11-05 10:15 | CRLHL7_ITS ---
For Patients: As a result of the Century Cures Act, medical imaging exams and procedure reports are released immediately into your electronic medical record. You may view this report before your referring provider. If you have questions, please contact your health care provider. INDICATION : Left thyroid nodule. TECHNIQUE : Ultrasound-guided fine needle aspiration of thyroid nodule. COMPARISON : 10/25/2024 FINDINGS : PROCEDURE: After the informed consent and time-out, multiple fine needle aspirations were obtained from the thyroid nodule. Fine needle performed. 25 gauge needles were used. Lidocaine was used for local anesthesia. The preliminary cytology was adequate for interpretation. Real-time imaging was used for guidance and needle placement. Post imaging ultrasound demonstrates no immediate complication. IMPRESSION : Successful fine needle aspiration of left thyroid nodule. Dictated by Bryce Page MD @ 11/05/2024 11:38:29 AM (Electronically Signed)
== END 2024-11-05 09:59 | disposition home or self-care (01) ==
LOC: US 09:59
PROVIDERS: PCP Internal Medicine; Visit Provider Internal Medicine
DX: E04.1 Nontoxic single thyroid nodule (principal)
CPT/HCPCS: 10005; 76942; 88173

== ENCOUNTER 2025-01-03 13:39 | Outpatient (CLI) | payer MEDICARE, SELFPAY ==
--- NOTE | 2025-01-03 13:40 | CRLHL7_ITS ---
For Patients: As a result of the Century Cures Act, medical imaging exams and procedure reports are released immediately into your electronic medical record. You may view this report before your referring provider. If you have questions, please contact your health care provider. BILATERAL SCREENING MAMMOGRAM WITH COMPUTER-AIDED DETECTION AND TOMOSYNTHESIS TECHNIQUE: CC and MLO views were obtained. These mammographic images have been obtained using full-field digital technique. These mammographic images were interpreted with the benefit of computer-aided detection. Breast Tomosynthesis was used in this interpretation. COMPARISON FILM: 01/27/23, 01/13/22, 03/15/18. FINDINGS: There are scattered areas of fibroglandular density. IMPRESSION: There is no radiographic evidence for malignancy. ASSESSMENT: BI-RADS Category 1: Negative RECOMMENDATION: Routine screening mammogram in 1 year. A lay language report of this examination will be provided to the patient. Bryce Page M.D. Diagnostic Radiologist [email or web address] SP/Dictated by: Bryce Page MD @ 01/06/2025 9:16:00 AM (Electronically Signed)
== END 2025-01-03 13:40 | disposition home or self-care (01) ==
LOC: MAMMO 13:39
PROVIDERS: PCP Internal Medicine; Visit Provider Internal Medicine
DX: Z12.31 Encounter for screening mammogram for malignant neoplasm of breast (principal)
CPT/HCPCS: 77063; 77067

== ENCOUNTER 2025-03-19 08:33 | Day surgery (SDC) | payer MEDICARE, SELFPAY ==
--- NOTE | 2025-03-19 08:58 | W.PM.PODPROC ---
Date of Procedure: 03/19/25 Surgeon: Nic Wilkinson DPM Co-Surgeon: Assist: Dr. Marie Peres Pre-op Diagnosis: 1. Hammertoe right 5th toe 2. contracture left 5th toe Post-op Diagnosis: Same Type of Procedure: 1. Right 5th digit arthroplasty [CPT: 18425] 2. Left 5th digit flexor tenotomy [CPT: 24794] Indications: Painful hammertoe/contracture reclacitrant to conservative cares Procedure Description: The patient was identified prior to being brought into the operating room using the name and date of as identifiers. The intended surgical plan was again reviewed in detail with the patient as well as the rationale for surgery, the most common risks, complications, and expected recovery course. The patient was given the opportunity to ask questions which were answered to the best of my ability. The patient ultimately voiced no questions or concerns, and agreed to proceed forward with the surgery as planned.?The patient was brought from the preoperative holding area to the operating room, and placed on the operating table in the supine position. At this time, a time-out was performed to identify the proper patient, site, and operation to be performed. A well-padded pneumatic ankle tourniquet was applied to the patient's right ankle. A preoperative injection of 0.25% Marcaine plain was administered in a field block fashion to the patient's right and left foot. The operative feet was then scrubbed, prepped, and draped in the normal sterile fashion. The right lower extremity was exsanguinated and the pneumatic ankle tourniquet was inflated to a level of 250 mmHg.? Right 5th digit arthroplasty Attention was then directed to the dorsal aspect of the 5th digit, right foot. Converging semi-eliptical incisions were made over the dorsal aspect of the proximal interphalangeal joint of the 5th digit. The small elipse of skin was freed from the underlying subcutaneous tissue and passed to the back table. The incision was deepened through subcutaneous tissue, taking care to retract and protect all vital neural and vascular structures. The level of the extensor tendon and capsule was identified at the proximal interphalangeal joint. A dorsal transverse tenotomy and capsulotomy was made and lateral and medial collateral ligaments were transected. An extensor flap was created sharply on the dorsal aspect of the proximal phalanx. A sagittal saw was utilized to resect the head of the proximal phalanx at the surgical neck. The head was passed to the back table. The redundant tendinous tissue was excised at the dorsal aspect of the proximal interphalangeal joint. The extensor tendon was re-approximated with a 2-0 Vicryl in a horizontal mattress type suture technique. The skin was re-approximated with a 4-0 nylon in a simple interrupted type suture technique. Once the skin was re-approximated full correction of the mild pre-operative rotation of the 5th digit was appreciated and a good rectus position of the digit was noted. The patient was then placed into a dry sterile dressing consisting of adaptic over the incision site, gauze 4 x 4's, angei, Sof-Rol, and SAUL bandage. The pneumatic ankle tourniquet was released and immediate reperfusion to digits 1 through 5 of the right foot was noted. Left 5th digit flexor tenotomy Attention was directed to the plantar aspect of the left 5th toe where a percutaneous incision was made at the junction between the plantar forefoot fat padding and the plantar digital skin at the level of the proximal plantar crease using a 19G needle. This incision was carried to bone and with the toe held in extension at the distal and proximal inter-phalangeal joints the flexor digitorum longus tendon was transected allowing a visible release of the toe contracture. The forefoot was loaded and ideal correction of the deformity was appreciated. Hemostasis was achieved via manual pressure and the skin edges were re-approximated with a nonabsorbable suture. A well padded dressing with fold gauze sponges placed at the dorsal and plantar forefoot to allow sustained extension of the toes and flexion of the metatarso-phalangeal joints was then applied. The patient was successfully reversed of MAC anesthesia and transferred to the recovery area with their vital signs stable and neurovascular status intact to their operative lower extremity.All sponge and instrument counts were correct at the completion of the surgery as well as prior to closure of deep tissue and skin. Anesthesia: MAC Hemostasis: ankle Estimated blood loss (mL): 5 Provider Operated C-arm: C-arm?fluoroscopy?operated by Dr. Wilkinson for adequate correction verification. Two C-arm spot images were obtained.?Fluoroscopy?time was 2 seconds Specimens: none sent Disposition: PACU
[2025-03-19 08:59] VITALS: BMI 31.6
[2025-03-19 09:12] VITALS: BP 176/81; PULSE 80; RESP 16; TEMP 36.3; O2SAT 97
[2025-03-19] MEDS: LACTATED RINGERS 1000 ML 1,000 ML 100 ML IV (09:16)
[2025-03-19] MEDS: SODIUM CHLORIDE 0.9 % (FLUSH) 10 ML SYRINGE IVF (09:16)
[2025-03-19] MEDS: CEFAZOLIN 1 GM inj IVP (09:41)
--- NOTE | 2025-03-19 09:52 | P.ANES_ITS ---
Anesthesia Charges Start Date/Time Anesthesia Start Date: 03/19/25 Anesthesia Start Time: 09:35 Stop Date/Time Anesthesia Stop Date: 03/19/25 Anesthesia Stop Time: 10:30 Summary Extremes of Age - Over 70 or under 1: MDA Coding CPT Codes CPT Codes: ANESTH LOWER LEG BONE SURG - 04856 ([id number]) P2 - PATIENT W/MILD SYST DISEASE, QK - FLAKER TENDER 2-4 CNCRNT ANES PROC, QX - NUT PROCESS HELPER SVC W/ MD MED DIRECTION Additional Codes: Summary - Extremes of Age - Over 70 or under 1: MDA ([id number])
--- NOTE | 2025-03-19 09:52 | W.ANESCHARGE ---
Anesthesia Charges Start Date/Time Anesthesia Start Date: 03/19/25 Anesthesia Start Time: 09:35 Stop Date/Time Anesthesia Stop Date: 03/19/25 Anesthesia Stop Time: 10:30 Summary Extremes of Age - Over 70 or under 1: MDA Coding CPT Codes CPT Codes: ANESTH LOWER LEG BONE SURG - 10528 ([id number]) P2 - PATIENT W/MILD SYST DISEASE, QK - FACTORY LABORER 2-4 CNCRNT ANES PROC, QX - DELINQUENT TAX COLLECTOR ASSISTANT SVC W/ MD MED DIRECTION Additional Codes: Summary - Extremes of Age - Over 70 or under 1: MDA ([id number])
[2025-03-19] MEDS: BUPIVACAINE 0.25% 30 ML INJECTION (10:15)
[2025-03-19 10:27] VITALS: BP 130/77; PULSE 76; RESP 16; TEMP 36.2; O2SAT 98
[2025-03-19 10:30] VITALS: BP 132/75; PULSE 68; RESP 16; O2SAT 95
[2025-03-19 10:45] VITALS: BP 159/80; PULSE 67; RESP 16; O2SAT 98
[2025-03-19 11:00] VITALS: BP 150/65; PULSE 66; RESP 16; O2SAT 98
[2025-03-19 11:15] VITALS: BP 154/75; PULSE 666; RESP 16; O2SAT 98
== END 2025-03-19 11:53 | disposition home or self-care (01) ==
LOC: OR 08:34
PROVIDERS: PCP Internal Medicine; Visit Provider Podiatrist
PROC: (CPT 28285; principal; 2025-03-19 09:45)
PROC: (CPT 28285; 2025-03-19 09:45)
DX: M20.41 Other hammer toe(s) (acquired), right foot (principal); M24.575 Contracture, left foot
CPT/HCPCS: 28285; 28010; 01480; 99100; J0665; J0690; J2405; J2704; J3010; J7120

== ENCOUNTER 2025-09-10 09:30 | Outpatient (RCR) | payer MEDICARE, SELFPAY ==
--- NOTE | 2025-08-28 12:20 | PT.OPEX ---
PT [facility] PT [facility] Outpatient Eval Start: 08/28/25 08:51 Freq: Status: Active Protocol: Document 08/28/25 08:51 CORNELIUS (Rec: 08/28/25 12:14 CORNELIUS [id number]) E-signed By Janay Garcia PT Physical Therapy Outpatient Evaluation Insurance Information Medical Diagnosis BPPV Treating Diagnosis VERTIGO CERVICAL STIFFNESS CERVICAL PIN Imaging Report MRI 02/22/23 Impression : Information 1. Straightening of normal cervical lordosis. No fractures or ligamentous injury. Anterolisthesis at C4-5 and retrolisthesis at C5-6. 2. Advanced facet arthrosis at C3-4 on the right and at C4-5 on the left side with bone marrow edema in the articular pillars compatible with osteoarthrosis with acute inflammation. 3. Mild spinal canal stenosis at C3-4, C5-6, and C7-T1. 4. Moderate bilateral neural foramen narrowing at C5-6 and moderate left neural from narrowing at C7-T1. Milder foramen stenosis the remaining levels. XRAY 09/2024: Mild nonspecific reversal of the normal cervical lordosis. Trace anterolisthesis at C3-4 and C4-5. Craniocervical articulation appears within normal limits. Mild chronic anterior wedge configuration of C5 and C6. No acute osseous abnormality. Scattered spondylosis , with neural foraminal narrowing greatest on the right at C3-4, C5-6 and C6-7, bilaterally at C7-T1 low-grade spinal canal narrowing at C3-4. Hypodense thyroid nodules, the largest on the left measuring 1.8 cm included lung apices are clear without evidence of pneumothorax. Referring MD TIERA ERVIN Subjective Preferred Name THERESA Dodd THE PATIENT REPORTS A TWO-YEAR HISTORY OF INFREQUENT VERTIGO EPISODES THAT HAD PREVIOUSLY RESOLVED FOR AN EXTENDED PERIOD. HOWEVER, SHE HAS EXPERIENCED TWO RECENT EPISODES WITHIN THE PAST TWO WEEKS, THE MOST RECENT OF WHICH WAS SIGNIFICANTLY DEBILITATING, LASTING APPROXIMATELY 45 MINUTES. SHE WAS UNABLE TO COMPLETE HER WORKDAY, STATING, ?MY WHOLE BODY WAS FATIGUED, AND I SLEPT THE REST OF THE DAY AND NIGHT.? SHE IS UNAWARE OF ANY SPECIFIC TRIGGERS AND DOES NOT IDENTIFY MOVEMENT A PROVOCATION. SHE DENIES ASSOCIATED HEADACHE OR ONGOING DIZZINESS. THE PATIENT HAS A LONGSTANDING HISTORY OF CHRONIC NECK PAIN WITH STIFFNESS, WHICH CURRENTLY LIMITS HER RANGE OF MOTION DUE TO AVOIDANCE OF PAINFUL POSITIONS. SHE DENIES ANY RECENT VIRAL OR BACTERIAL INFECTIONS REQUIRING ANTIBIOTICS WITHIN THE PAST SIX MONTHS. SHE DOES REPORT SEVERAL FALLS OVER THE PAST FEW YEARS, SOME INVOLVING SIGNIFICANT HEAD IMPACT. ADDITIONALLY, SHE NOTES DIFFICULTY SLEEPING, DESCRIBING RESTLESSNESS AND FREQUENT NOCTURNAL URINATION. SHE DENIES ISSUES WITH CONCENTRATION OR MEMORY, AND REPORTS NO SENSITIVITY TO LIGHT OR SOUND. Pain Comments 12/02 NECK Date of Last 08/11/25 Physician Visit Occupation [employer] Precautions Therapy Limitations/ Not Limited Systems Review Objective Other/Pertinent 2. RED FLAG SCREENING Objective UNEXPLAINED NEUROLOGICAL SIGNS (-) SUDDEN HEARING LOSS (-) DROP ATTACKS (-) CERVICAL INSTABILITY (-) VERTICAL NYSTAGMUS ON DOWNWARD GAZE (-) NO IMPROVEMENT AFTER 30 DAYS OF TREATMENT (ONGOING ASSESSMENT) 3. OCULOMOTOR EXAMINATION EXTRAOCULAR ROM WNL SMOOTH PURSUIT (-) SACCADES (-) GAZE-EVOKED AND SPONTANEOUS NYSTAGMUS (-) NEAR POINT CONVERGENCE (-) COVER TEST FOR SKEW DEVIATION (-) HEAD THRUST TEST (VOR) (-) DYNAMIC VISUAL ACUITY NT 4. POSITIONAL TESTING YOKASTA-HALLPIKE MANEUVER (POSTERIOR CANAL BPPV) (-) FOR R/ L POSTERIOR, ANTERIOR SUPINE ROLL TEST (HORIZONTAL CANAL BPPV) (-) R/L OTHER MANEUVERS NEEDED (KEESHA DE LA GARZA, MALORIE) N/A 5. BALANCE AND GAIT ASSESSMENT STATIC BALANCE TESTS (ROMBERG, MCTSIB, DINA) ROMBERG 30 EO, 18 EC W/INCREASED SWAY ANT/POST DYNAMIC BALANCE TESTS (FUNCTIONAL REACH, SINGLE LEG STANCE) SLS R 11/ L19 GAIT TESTS (DGI, FGA, TUG, 10-METER WALK TEST) DGI 19/ 24 6. CERVICAL ASSESSMENT CERVICAL ROM WFL LIMITED BY STIFFNESS JOINT POSITION ERROR TESTING UNREMARKABLE PALPATION FOR TENDERNESS OR INSTABILITY; TENDERNESS AT THE SUBOCCIPITAL 7. MOTION SENSITIVITY TESTING MOTION SENSITIVITY QUOTIENT (MSQ) MILD DIZZINESS WHEN MOVING FROM SUPINE TO SIT, HEAD FROM KNEE R/L TO UPRIGHT, AND TURNING 180 DEGREES IDENTIFY PROVOCATIVE MOVEMENTS AND SEVERITY UNREMARKABLE 8. OUTCOME MEASURES DIZZINESS HANDICAP INVENTORY (DHI) 8% ACTIVITIES-SPECIFIC BALANCE CONFIDENCE (ABC) SCALE 83.1 % VESTIBULAR ACTIVITIES AVOIDANCE INSTRUMENT (VAAI) NT VISUAL VERTIGO ANALOGUE SCALE NT Functional Test SEE ABOVE Performed & Score Assessment Assessment/ PATIENT IS A [address] ERVIN TO EVAL AND Impression TREAT DIZZINESS AND VERTIGO. ELAINE PRESENTS WITH MILD VESTIBULAR DYSFUNCTION CHARACTERIZED BY DIZZINESS DURING SPECIFIC HEAD AND POSITIONAL MOVEMENTS, EVIDENCED BY A MILDLY POSITIVE MOTION SENSITIVITY QUOTIENT (MSQ) AND INCREASED SWAY DURING EYES-CLOSED ROMBERG TESTING. OCULOMOTOR AND POSITIONAL TESTING WERE NEGATIVE FOR BPPV OR CENTRAL SIGNS. GAIT AND DYNAMIC BALANCE ARE MILDLY IMPAIRED, WITH A DGI SCORE OF 19/24 AND REDUCED SINGLE-LEG STANCE TIMES, INDICATING INCREASED FALL RISK DURING COMPLEX MOBILITY TASKS. CERVICAL ROM IS WITHIN FUNCTIONAL LIMITS BUT LIMITED BY STIFFNESS, WITH SUBOCCIPITAL TENDERNESS NOTED. OUTCOME MEASURES SUGGEST MILD PERCEIVED HANDICAP (DHI 8%) AND MODERATELY HIGH BALANCE CONFIDENCE (ABC 83.1%).PATIENT WOULD BENEFIT FROM A VESTIBULAR REHABILITATION PROGRAM FOCUSED ON IMPROVING DYNAMIC BALANCE, REDUCING MOTION SENSITIVITY, AND ADDRESSING CERVICAL STIFFNESS TO ENHANCE FUNCTIONAL MOBILITY AND SAFETY. Primary Functional BALANCE Limitations DIZZINESS VERTIGO Plan of Care Rehabilitation Good Potential Physical Therapy GOALS (TO BE ACHIEVED IN 4?6 WEEKS): Goals 1. IMPROVE DGI SCORE FROM 19/24 TO =22/24 TO REFLECT SAFER DYNAMIC GAIT PERFORMANCE. 2. INCREASE SINGLE-LEG STANCE TIME TO =20 SECONDS BILATERALLY TO ENHANCE STATIC BALANCE AND REDUCE FALL RISK. 3. REDUCE DIZZINESS SYMPTOMS DURING POSITIONAL CHANGES (E.G., SUPINE TO SIT, HEAD TURNS) MEASURED BY MSQ AND PATIENT REPORT. 4. RESTORE FULL CERVICAL ROM WITHOUT STIFFNESS OR TENDERNESS TO SUPPORT HEAD MOVEMENT TOLERANCE AND REDUCE COMPENSATORY STRATEGIES. Coordination/ Referral Source Communication With Treatment Plan/ Canalith Repositioning,Dry Needling,Electrical Direct Interventions Stimulation,Heat,Joint Mobilization,Manual Therapy, Neuromuscular Re-ed,Self-Care/Home Management, Therapeutic Activities Frequency/Duration 1X/WK Patient Will Be Completion of LTG(s),Independent w/HEP Discharged From Therapy Evaluation Billing Untimed Code 45 Treatment Minutes PT Eval No Charge No Complexity Low Certification Information Initial 08/28/25 Certification Date Ending Certification 11/25/25 Date Provider Signature Yes Required Provider Signature POC & Medical Necessity Shows Agreement With Physician NPI Number Write NPI# Here Physician Comment/ : Change Physician Signature Please Sign/Date Here & Date Requested
== END 2025-10-02 13:21 | disposition home or self-care (01) ==
PROVIDERS: PCP Internal Medicine; Visit Provider Internal Medicine
DX: R42 Dizziness and giddiness (principal); Z51.89 Encounter for other specified aftercare
CPT/HCPCS: 97112; 97140; 97161